=== PATIENT | female | born 1955 | race African-American/Black ===

== ENCOUNTER 2019-01-12 12:24 | Observation (INO) | payer MEDICARE ==
[~2019-01-12] VITALS: Ht 152.4 cm; Wt 110.2 kg
--- OUTSIDE RECORDS SUMMARY | 2019-01-12 12:27 | XMS REPORT | Clinical Summary ---
Author Author GORGE [facility] Organization [facility] Address Unknown Phone Unavailable Care Team Providers Care Shuttlecock Assembler Name Role Phone Vivi Matthew MD PCP Unavailable Allergies Comments Active Allergy Reactions Severity Noted Date cough Emilio Inhibitors Other (See 09/13/2015 Comments) Tolterodine Hives 09/13/2015 Nsaids (Non-Steroidal Anaphylaxis High 09/13/2015 Anti-Inflammatory Drug) Penicillins Rash Low 09/13/2015 Oxycodone-Acetaminophen Hives 09/13/2015 Medications End Date Status Medication Sig Dispensed Refills Start Date Active glimepiride (AMARYL) 2 MG Take 4 mg by 0 tabletIndications: type 2 mouth every diabetes mellitus morning before breakfast. Active labetalol (NORMODYNE) 200 Take 200 mg 0 MG tablet by mouth 2 (two) times daily. Active omeprazole (PRILOSEC) 20 Take 20 mg by 0 MG capsule mouth 2 (two) times daily. Active pravastatin (PRAVACHOL) Take 80 mg by 0 80 MG tablet mouth daily. Active losartan-hydrochlorothiaz Take 1 tablet 0 romero (HYZAAR) 100-25 mg by mouth per tablet daily. Active topiramate (TOPAMAX) 100 Take 100 mg 0 MG tablet by mouth 2 (two) times daily. Active cloNIDine HCl (CATAPRES) Take 0.1 mg 0 0.1 MG tablet by mouth 2 (two) times daily. Active hydroxychloroquine Take 200 mg 0 (PLAQUENIL) 200 mg tablet by mouth daily. Active acetaminophen-codeine Take 1 tablet 0 (TYLENOL #4) 300-60 mg by mouth 3 per tablet (three) times daily as needed for Pain. Active cetirizine (ZYRTEC) 10 MG Take 10 mg by 0 tablet mouth 2 (two) times daily as needed for Allergies. 06/15/2018 Discontinued aspirin 81 MG chewable Take 81 mg by 0 tablet mouth daily. 06/15/2018 Discontinued HYDROmorphone (DILAUDID) Take 2 mg by 0 2 MG tabletIndications: mouth every 8 Pain (eight) hours as needed for Pain . 06/15/2018 Discontinued traZODone (DESYREL) 50 MG Take 50 mg by 0 tablet mouth nightly. 11/11/2018 Discontinued dicyclomine (BENTYL) 10 Take 10 mg by 0 MG capsule mouth 3 (three) times daily as needed (for abd cramps). 11/11/2018 Discontinued hydrOXYzine (ATARAX) 25 Take 25 mg by 0 MG tablet mouth 3 (three) times daily as needed for Itching. 06/15/2018 Discontinued psyllium (METAMUCIL) Pack Take 1 packet 60 packet 0 packet by mouth 7 nightly. 06/15/2018 Discontinued metroNIDAZOLE (FLAGYL) Take 1 tablet 14 tablet 0 500 MG tablet (500 mg 8 total) by mouth 2 (two) times daily for 7 days. 06/15/2018 Discontinued ciprofloxacin HCl (CIPRO) Take 1 tablet 28 tablet 0 500 MG tablet (500 mg 8 total) by mouth 2 (two) times daily for 7 days. 06/15/2018 Discontinued traMADol (ULTRAM) 50 mg Take 1 tablet 20 tablet 0 tablet (50 mg total) 8 by mouth every 6 (six) hours as needed for up to 10 days. Max Daily Amount: 200 mg 06/15/2018 Discontinued docusate sodium (COLACE) Take 1 30 capsule 0 100 MG capsule capsule (100 8 mg total) by mouth 3 (three) times daily as needed for Constipation for up to 10 days. 11/11/2018 Discontinued polyethylene glycol Take 17 g by 0 (GLYCOLAX) 17 gram packet mouth daily. 11/12/2018 Discontinued ondansetron (ZOFRAN) 4 MG Take 1 tablet 16 tablet 0 tablet (4 mg total) 9 by mouth every 6 (six) hours for 7 days. 11/12/2018 Discontinued lactulose (CEPHULAC) 20 Take 1 packet 30 each 0 gram packet (20 g total) 9 by mouth 3 (three) times daily for 10 days. 11/22/2018 lactulose (CEPHULAC) 20 Take 1 packet 30 each 0 gram packet (20 g total) 9 by mouth 2 (two) times daily as needed (constipation ) for up to 10 days. 11/19/2018 ondansetron (ZOFRAN) 4 MG Take 1 tablet 16 tablet 0 tablet (4 mg total) 9 by mouth every 6 (six) hours for 7 days. Active Problems Problem Noted Date Constipation 06/14/2018 Left upper quadrant pain 06/13/2018 Colostomy complication, unspecified 06/13/2018 Recurrent ventral hernia 06/13/2018 Morbid obesity with BMI of 45.0-49.9, adult 06/13/2018 Abdominal pain, unspecified location 04/30/2017 Acute abdominal pain in left lower quadrant 09/13/2015 DM type 2 (diabetes mellitus, type 2) 09/13/2015 Essential hypertension 09/13/2015 SLE (systemic lupus erythematosus) 09/13/2015 History of IBS 09/13/2015 Chronic back pain greater than 3 months duration 09/13/2015 Mild intermittent asthma without complication 09/13/2015 GERD (gastroesophageal reflux disease) 09/13/[address] 09/13/2015 H/O ventral hernia 09/13/2015 Encounters Care Team Description Date Type Specialty Ricki Wilkinson MD Dang, Jose C Daugherty MD Constipation, unspecified constipation type (Primary Dx); Left upper quadrant pain; Recurrent ventral hernia; Morbid obesity with BMI of 45.0-49.9, adult (HCC) 11/11/2018 Emergency General Internal Medicine - 11/12/2018 11/11/2018 Travel Maddi Ziegler DO Schempp, Rosemary, MD Hite, Wayne K., DO Left upper quadrant pain (Primary Dx); Colostomy complication, unspecified ([facility]); Type 2 diabetes mellitus with complication, unspecified whether senior care insulin use ([facility]); Essential hypertension; Systemic lupus erythematosus, unspecified SLE type, unspecified organ involvement status ([facility]); Recurrent ventral hernia 06/13/2018 Emergency General Internal Medicine - 06/15/2018 OfPortillo scott MD Abdominal pain, acute, left lower quadrant (Primary Dx); Acute colitis 06/09/2018 Emergency Emergency Medicine - 06/10/2018 after 01/11/2018 Social History Date Tobacco Use Types Packs/Day Years Used Never Smoker Smokeless Tobacco: Never Used Alcohol Use Drinks/Week oz/Week Comments No Sex Assigned at Date Recorded Not on file Industry Job Start Date Occupation Not on file Not on file Not on file Travel End Travel History Travel Start No recent travel history available. Last Filed Vital Signs Time Taken Vital Sign Reading 11/12/2018 8:50 AM TELETYPE TELEGRAPHER Blood Pressure 122/56 11/12/2018 8:50 AM TELETYPE TELEGRAPHER Pulse 80 11/12/2018 8:50 AM TELETYPE TELEGRAPHER Temperature 36.5 C (97.7 F) 11/12/2018 8:50 AM TELETYPE TELEGRAPHER Respiratory Rate 18 11/12/2018 8:50 AM TELETYPE TELEGRAPHER Oxygen Saturation 94% - Inhaled Oxygen - Concentration 11/11/2018 6:12 AM TELETYPE TELEGRAPHER Weight 110.7 kg (244 lb) 11/11/2018 6:12 AM TELETYPE TELEGRAPHER Height 152.4 cm (5') 11/11/2018 6:12 AM TELETYPE TELEGRAPHER Body Mass Index 47.65 Plan of Treatment Not on file Procedures Comments Procedure Name Priority Date/Time Associated Diagnosis POCT-GLUCOSE METER Routine 11/12/2018 8:57 AM TELETYPE TELEGRAPHER POCT-GLUCOSE METER Routine 11/11/2018 9:47 PM TELETYPE TELEGRAPHER POCT-GLUCOSE METER Routine 11/11/2018 6:[address] ABDOMEN/PELVIS WITH IV STAT 11/11/2018 CONTRAST 9:25 AM TELETYPE TELEGRAPHER CBC W/PLT COUNT & AUTO STAT 11/11/2018 DIFFERENTIAL 7:52 AM TELETYPE TELEGRAPHER CBC W/PLT COUNT & AUTO STAT 11/11/2018 DIFFERENTIAL 7:52 AM TELETYPE TELEGRAPHER BASIC METABOLIC PANEL (7) STAT 11/11/2018 7:52 AM TELETYPE TELEGRAPHER URINALYSIS W/ MICROSCOPIC STAT 11/11/2018 7:23 AM TELETYPE TELEGRAPHER POCT-GLUCOSE METER Routine 06/15/2018 12:17 PM CDT POCT-GLUCOSE METER Routine 06/15/2018 7:36 AM CDT MAGNESIUM Routine 06/15/2018 5:54 AM CDT PHOSPHORUS Routine 06/15/2018 5:54 AM CDT BASIC METABOLIC PANEL (7) Routine 06/15/2018 5:54 AM CDT POCT-GLUCOSE METER Routine 06/14/2018 10:21 PM CDT POCT-GLUCOSE METER Routine 06/14/2018 5:14 PM CDT POCT-GLUCOSE METER Routine 06/14/2018 11:26 AM CDT POCT-GLUCOSE METER Routine 06/14/2018 8:34 AM CDT CBC W/PLT COUNT & AUTO Routine 06/14/2018 DIFFERENTIAL 5:20 AM CDT LACTIC ACID, VENOUS Routine 06/14/2018 5:20 AM CDT CBC W/PLT COUNT & AUTO Routine 06/14/2018 DIFFERENTIAL 5:20 AM CDT MAGNESIUM Routine 06/14/2018 5:20 AM CDT PHOSPHORUS Routine 06/14/2018 5:20 AM CDT BASIC METABOLIC PANEL (7) Routine 06/14/2018 5:20 AM CDT POCT-GLUCOSE METER Routine 06/13/2018 10:[address] ABDOMEN/PELVIS WITH IV STAT 06/13/2018 CONTRAST 5:13 PM CDT POCT-LACTIC ACID, VENOUS Routine 06/13/2018 3:28 PM CDT CBC W/PLT COUNT & AUTO STAT 06/13/2018 DIFFERENTIAL 3:09 PM CDT PT/APTT STAT 06/13/2018 3:09 PM CDT CBC W/PLT COUNT & AUTO STAT 06/13/2018 DIFFERENTIAL 3:09 PM CDT LIPASE STAT 06/13/2018 3:09 PM CDT COMPREHENSIVE METABOLIC STAT 06/13/2018 PANEL 3:[address] ABDOMEN/PELVIS WITH IV STAT 06/09/2018 CONTRAST 9:47 PM CDT URINALYSIS W/ MICROSCOPIC STAT 06/09/2018 6:47 PM CDT CBC W/PLT COUNT & AUTO STAT 06/09/2018 DIFFERENTIAL 6:03 PM CDT CBC W/PLT COUNT & AUTO STAT 06/09/2018 DIFFERENTIAL 6:03 PM CDT BASIC METABOLIC PANEL (7) STAT 06/09/2018 6:03 PM CDT after 01/11/2018 Results * POC-Glucose meter (11/12/2018 8:57 AM TELETYPE TELEGRAPHER) Only the most recent of 10 results within the time period is included. POC-Glucose Meter 134 (H)Comment: TESTED AT 70 - 110 mg/dL [facility] [address] [facility] [id number] Specimen Blood Performing Organization Address City/State/Zipcode Phone Number [place] [phone] [place] [address] [facility] * CT abdomen/pelvis with IV contrast (11/11/2018 9:25 AM TELETYPE TELEGRAPHER) Only the most recent of 3 results within the time period is included. Specimen Narrative Performed At FINAL REPORT [place] DOSE REDUCTION: The examination was performed according to departmental dose-optimization program which includes automated exposure control, adjustment of the mA and/or kV according to patient size and/or use of iterative reconstruction technique. TECHNIQUE: CT of the abdomen and pelvis with intravenous contrast. COMPARISON: CT of the abdomen and pelvis, 06/13/2018, 04/30/2017 Discussion: Lung bases are clear. Partially depicted heart is enlarged. Liver is enlarged measuring 17 cm. There is decreased liver density consistent with fatty infiltration. No suspicious liver lesion. Spleen measures 12 cm. Pancreas and left adrenal gland appear unremarkable. There is some right adrenal gland nodularity/hyperplasia which is stable. The gallbladder and biliary tree are unremarkable. A 1.2 cm hyperdense exophytic right renal lesion is again seen. Compared to 06/13/2018 this is stable, compared to 04/30/2017 this is slightly enlarged. As suggested previously, a small renal cell neoplasm could not be excluded and if not already performed, renal protocol CT or MRI is recommended. Additional renal hypodensities are grossly stable, difficult to characterize further but likely represent cysts. No hydronephrosis bilaterally. No definite findings of pyelonephritis. No obstructing ureteral stones. There is a small hiatal hernia. There is a large complex appearing midline ventral pelvic wall hernia containing multiple loops of nonobstructed small bowel and colon. This is stable. Postsurgical changes related to left colonic resection and left lower quadrant colostomy seen. A large left-sided parastomal hernia containing multiple nonobstructed loops of small bowel again noted. There are additional smaller abdominal wall hernias centrally most of which contain fat which are stable. There is mild wall thickening involving portions of the distal transverse colon, but this has decreased. No ascites. A few mildly prominent upper abdominal/periportal lymph nodes measuring up to 1.6 cm stable. Aorta and IVC are normal in caliber. Uterus is surgically absent. No suspicious adnexal masses. Urinary bladder is unremarkable. No acute skeletal abnormality. Postsurgical changes in the lumbar spine. IMPRESSION: 1. No acute CT abnormality in the abdomen and pelvis. 2. Some of the previous transverse colonic wall thickening has decreased. Otherwise there is no significant change from CT of 06/13/2018. See above for multiple stable findings. Signed: Gemini Christina MD Report Verified Date/Time:11/11/2018 09:52:32 Reading Location: [facility] Radiology Reading Room Procedure Note Interface, External Ris In - 11/11/2018 9:54 AM TELETYPE TELEGRAPHER FINAL REPORT DOSE REDUCTION: The examination was performed according to departmental dose-optimization program which includes automated exposure control, adjustment of the mA and/or kV according to patient size and/or use of iterative reconstruction technique. TECHNIQUE: CT of the abdomen and pelvis with intravenous contrast. COMPARISON: CT of the abdomen and pelvis, 06/13/2018, 04/30/2017 Discussion: Lung bases are clear. Partially depicted heart is enlarged. Liver is enlarged measuring 17 cm. There is decreased liver density consistent with fatty infiltration. No suspicious liver lesion. Spleen measures 12 cm. Pancreas and left adrenal gland appear unremarkable. There is some right adrenal gland nodularity/hyperplasia which is stable. The gallbladder and biliary tree are unremarkable. A 1.2 cm hyperdense exophytic right renal lesion is again seen. Compared to 06/13/2018 this is stable, compared to 04/30/2017 this is slightly enlarged. As suggested previously, a small renal cell neoplasm could not be excluded and if not already performed, renal protocol CT or MRI is recommended. Additional renal hypodensities are grossly stable, difficult to characterize further but likely represent cysts. No hydronephrosis bilaterally. No definite findings of pyelonephritis. No obstructing ureteral stones. There is a small hiatal hernia. There is a large complex appearing midline ventral pelvic wall hernia containing multiple loops of nonobstructed small bowel and colon. This is stable. Postsurgical changes related to left colonic resection and left lower quadrant colostomy seen. A large left-sided parastomal hernia containing multiple nonobstructed loops of small bowel again noted. There are additional smaller abdominal wall hernias centrally most of which contain fat which are stable. There is mild wall thickening involving portions of the distal transverse colon, but this has decreased. No ascites. A few mildly prominent upper abdominal/periportal lymph nodes measuring up to 1.6 cm stable. Aorta and IVC are normal in caliber. Uterus is surgically absent. No suspicious adnexal masses. Urinary bladder is unremarkable. No acute skeletal abnormality. Postsurgical changes in the lumbar spine. IMPRESSION: 1. No acute CT abnormality in the abdomen and pelvis. 2. Some of the previous transverse colonic wall thickening has decreased. Otherwise there is no significant change from CT of 06/13/2018. See above for multiple stable findings. Signed: Gemini Christina MD Report Verified Date/Time: 11/11/2018 09:52:32 Reading Location: [facility] Radiology Reading Room Performing Organization Address City/State/Zipcode Phone Number [facility] * CBC with platelet count + automated diff (11/11/2018 7:52 AM TELETYPE TELEGRAPHER) Only the most recent of 4 results within the time period is included. WBC 12.3 (H) 3.5 - 10.5 K/L [facility] RBC 5.19 3.93 - 5.22 M/L [facility] Hemoglobin 13.2 11.2 - 15.7 GM/DL [facility] Hematocrit 43.9 34.1 - 44.9 % [facility] MCV 84.6 79.4 - 94.8 fL [facility] MCH 25.4 (L) 25.6 - 32.2 pg [facility] MCHC 30.1 (L) 32.2 - 35.5 GM/DL [facility] RDW 13.8 11.7 - 14.4 % [facility] Platelets 262 150 - 450 K/CU MM [facility] MPV 8.9 (L) 9.4 - 12.3 fL [facility] nRBC 0 0 - 0 /100 WBC [facility] % Neutros 68 % [facility] % Lymphs 23 % [facility] % Monos 7 % [facility] % Eos 1 % [facility] % Baso 0 % [facility] # Neutros 8.32 (H) 1.56 - 6.13 K/L [facility] # Lymphs 2.77 1.18 - 3.74 K/L [facility] # Monos 0.89 (H) 0.24 - 0.36 K/L [facility] # Eos 0.16 0.04 - 0.36 K/L [facility] # Baso 0.05 0.01 - 0.08 K/L [facility] Immature 1 0 - 1 % [facility] Granulocytes-Relative [facility] Specimen Blood Performing Organization Address City/[facility]/Zipcode Phone Number [facility] [address] [place] [address] [facility] * Basic Metabolic Panel (11/11/2018 7:52 AM TELETYPE TELEGRAPHER) Only the most recent of 4 results within the time period is included. Sodium 142 136 - 145 meq/L [facility] Potassium 3.8 3.5 - 5.1 meq/L [facility] Chloride 107 98 - 107 meq/L [facility] CO2 21 (L) 22 - 29 meq/L [facility] BUN 15 7 - 21 mg/dL [facility] Creatinine 0.82 0.57 - 1.25 mg/dL [facility] Glucose 95 70 - 105 mg/dL [facility] Calcium 10.2 8.4 - 10.2 mg/dL [facility] EGFR 85Comment: ESTIMATED GFR IS mL/min/1.[address] [facility] NOT ACCURATE CREATININE [facility] CLEARANCE IN PREDICTING GLOMERULAR FILTRATION RATE. ESTIMATED GFR IS NOT APPLICABLE FOR DIALYSIS PATIENTS. Specimen Blood Performing Organization Address City/State/Zipcode Phone Number [facility] [address] [place] [address] [facility] * Urinalysis w/Microscopic (11/11/2018 7:23 AM TELETYPE TELEGRAPHER) Only the most recent of 2 results within the time period is included. Color, UA Yellow [facility] Clarity, UA Clear [facility] Specific [place], UA 1.011 1.001 - 1.035 [facility] pH, UA 5.5 5.0 - 8.0 [facility] Protein, UA Negative Negative [facility] Glucose, UA Negative Negative [facility] Ketones, UA Negative Negative [facility] Bilirubin, UA Negative Negative [facility] Blood, UA Negative Negative [facility] Nitrite, UA Negative Negative [facility] Leukocytes, UA Negative Negative [facility] Urobilinogen, UA 0.2 0.2 - 1.0 mg/dL [facility] RBC, UA <1 /HPF [facility] WBC, UA 1 /HPF [facility] Bacteria, UA Rare [facility] Mucus Rare [facility] Squam Epithel, UA 2 /HPF [facility] Specimen Source Urine, Clean Catch [facility] Specimen Urine Performing Organization Address City/[facility] [place] [address] [facility] * Phosphorus (06/15/2018 5:54 AM CDT) Only the most recent of 2 results within the time period is included. Phosphorus 3.2 2.3 - 4.7 mg/dL [facility] Specimen Blood Performing Organization Address City/[facility]/Zipcode Phone Number [address] [address] [facility] * Magnesium (06/15/2018 5:54 AM CDT) Only the most recent of 2 results within the time period is included. Magnesium 1.8 1.6 - 2.6 mg/dL [facility] Specimen Blood Performing Organization Address City/[facility] Phone Number [address] [address] [facility] * Lactic acid, venous, whole blood (06/14/2018 5:20 AM CDT) Lactate, Venous 1.2Comment: Specimen slightly 0.5 - 2.2 mmol/L [facility] hemolyzed [facility] Specimen Blood Narrative Performed At Effective 01/19/2016: Units/Reference Range Change [facility] New: 0.5-2.2 mmol/LPrevious: 5-20 mg/dL [facility] Performing Organization Address City/State/[facility] Phone Number [address] [address] [facility] * POC-Lactic Acid, Venous (06/13/2018 3:28 PM CDT) POC-Lactic Acid, Venous 1.8 (H)Comment: TESTED AT 0.9 - 1.7 mmol/L [facility] [address] [place] [id number] Specimen Blood Performing Organization Address [facility] Phone Number [address] [address] [facility] * PT/aPTT (06/13/2018 3:09 PM CDT) Protime 15.7 (H) 11.7 - 14.7 seconds [facility] INR 1.3 <=5.9 [facility] PTT 34.9 22.5 - 36.0 seconds [facility] Specimen Blood Narrative Performed At RECOMMENDED COUMADIN/WARFARIN INR THERAPY RANGES [facility] STANDARD DOSE: 2.0 - 3.0 Includes: PROPHYLAXIS for venous thrombosis, [facility] systemic embolization; TREATMENT for venous thrombosis and/or pulmonary embolus. HIGH RISK: Target INR is 2.5-3.5 for patients with mechanical heart valves. Performing Organization Address City/[facility] Phone Number [address] [address] [facility] * Lipase (06/13/2018 3:09 PM CDT) Lipase 23 8 - 78 U/L [facility] Specimen Blood Performing Organization Address City/State/Zipcode Phone Number [facility] [address] [place] [address] MEDICAL [facility]ENTER * Comprehensive metabolic panel (06/13/2018 3:09 PM CDT) Protein, Total 7.9Comment: Specimen slightly 6.0 - 8.3 gm/dL [facility] Albumin 4.3Comment: Specimen slightly 3.5 - 5.0 g/dL [facility] Alkaline Phosphatase 118 40 - 150 U/L [facility] Total Bilirubin 0.5Comment: Specimen slightly 0.2 - 1.2 mg/dL [facility] Sodium 138 136 - 145 meq/L [facility] Potassium 3.9Comment: Specimen slightly 3.5 - 5.1 meq/L [facility] Chloride 107 98 - 107 meq/L [facility] CO2 19 (L) 22 - 29 meq/L [facility] BUN 20 7 - 21 mg/dL [facility] Creatinine 0.93Comment: Specimen slightly 0.57 - 1.25 mg/dL [facility] Glucose 144 (H) 70 - 105 mg/dL [facility] Calcium 10.0 8.4 - 10.2 mg/dL [facility] AST 20Comment: Specimen slightly 5 - 34 U/L [facility] ALT 13Comment: Specimen slightly 6 - 55 U/L [facility] EGFR 74Comment: ESTIMATED GFR IS mL/min/1.[address] [facility] NOT ACCURATE CREATININE [facility] CLEARANCE IN PREDICTING GLOMERULAR FILTRATION RATE. ESTIMATED GFR IS NOT APPLICABLE FOR DIALYSIS PATIENTS. Specimen Blood Performing Organization Address City/State/Zipcode Phone Number [facility] [address] [place], [place] [id number] MEDICAL [facility]ENTER after 01/11/2018 Insurance Payer Benefit Subscriber ID Type Phone Address Plan / Group [facility] MEDIC[facility] ADV Advance Directives For more information, please contact: [facility] [address] [place] [address] Date Inactivated Comments Code Status Date Activated 11/12/2018 12:47 PM Full Code 11/11/2018 2:37 PM This code status was determined by: Patient 06/15/2018 6:12 PM Full Code 06/13/2018 9:28 PM This code status was determined by: Patient 05/01/2017 6:22 PM Full Code 05/01/2017 1:52 AM This code status was determined by: Patient 09/15/2015 11:47 AM Full Code 09/13/2015 3:38 AM This code status was determined by: Patient
--- OUTSIDE RECORDS SUMMARY | 2019-01-12 12:28 | XMS REPORT ---
[facility] Address Unknown Phone Unavailable Care Team Providers Care Marketing Sales Supervisor Name Role Phone Radha ULLOA Unavailable Unavailable JYOTILISBETH Unavailable Unavailable OFORDEME, DALI PLASENCIA Unavailable Unavailable TRACE, TIFFANY MCMANUS Unavailable Unavailable Problems This patient has no known problems. Allergies, Adverse Reactions, Alerts This patient has no known allergies or adverse reactions. Medications This patient has no known medications. Results Test Description Test Time Test Comments Text Results Atomic Results Result Comments POCT-GLUCOSE METER 2018-11-12 09:13:00 POC-GLUCOSE METER (BEAKER) (test llyj=5713) 134 mg/dL 70-110 TESTED AT [address] [address] POCT-GLUCOSE [id number] 22:00:00* Test Item Value Reference Range Comments POC-GLUCOSE METER (BEAKER) (test hvxe=8137) 144 mg/dL 70-110 TESTED AT [address] [address] POCT-GLUCOSE [id number] 18:25:00* Test Item Value Reference Range Comments POC-GLUCOSE METER (BEAKER) (test kaiz=1176) 143 mg/dL 70-110 TESTED AT [address] [address] [address], [id number] 09:52:00Reason for exam:->ABDOMINAL PAINWhat is the patient's sedation requirement?->No SedationFINAL REPORT DOSE REDUCTION: The examination was performed according to departmental dose- optimization program which includes automated exposure control, adjustment of the mA and/or kV according to patient size and/or use of iterative reconstruction technique. TECHNIQUE: CT of the abdomen and pelvis with intravenous contrast. COMPARISON: CT of the abdomen and pelvis, 06/13/2018, 04/30/2017 Discussion: Lung bases are clear. Partially depicted heart is enla rged. Liver is enlarged measuring 17 cm. There is decreased liver density consis tent with fatty infiltration. No suspicious liver lesion. Spleen measures 12 cm. Pancreas and left adrenal gland appear unremarkable. There is some right adrenal gland nodularity/hyperplasia which is stable. The gallbladder and biliary tree are unremarkable. A 1.2 cm hyperdense exophytic right renal lesion is again see n. Compared to 06/13/2018 this is stable, compared to 04/30/2017 this is slightly enlarged. As suggested previously, a small renal cell neoplasm could not be excl uded and if not already performed, renal protocol CT or MRI is recommended. Uriel tional renal hypodensities are grossly stable, difficult to characterize further but likely represent cysts. No hydronephrosis bilaterally. No definite findings of pyelonephritis. No obstructing ureteral stones. There is a small hiatal dillan ia. There is a large complex appearing midline ventral pelvic wall hernia contai ricardo multiple loops of nonobstructed small bowel and colon. This is stable. Post surgical changes related to left colonic resection and left lower quadrant colos miguelito seen. A large left-sided parastomal hernia containing multiple nonobstructe d loops of small bowel again noted. There are additional smaller abdominal wall hernias centrally most of which contain fat which are stable. There is mild wall thickening involving portions of the distal transverse colon, but this has decr eased. No ascites. A few mildly prominent upper abdominal/periportal lymph nodes measuring up to 1.6 cm stable. Aorta and IVC are normal in caliber. Uterus is s urgically absent. No suspicious adnexal masses. Urinary bladder is unremarkable. No acute skeletal abnormality. Postsurgical changes in the lumbar spine. IMPRES PRAMOD: 1. No acute CT abnormality in the abdomen and pelvis. 2. Some of the previ ous transverse colonic wall thickening has decreased. Otherwise there is no sign ificant change from CT of 06/13/2018. See above for multiple stable findings. Sig skinny: Félix Christina MDReport Verified Date/Time: 11/11/2018 09:52:32 Reading Locat ion: [facility] Radiology Reading Room C METABOLIC [id number] 08:15:00* Test Item Value Reference Range Comments SODIUM (BEAKER) (test fluf=018) 142 meq/L 136-145 POTASSIUM (BEAKER) (test yjnw=237) 3.8 meq/L 3.5-5.1 CHLORIDE (BEAKER) (test pphf=488) 107 meq/L 98-107 CO2 (BEAKER) (test qqvh=087) 21 meq/L 22-29 BLOOD UREA NITROGEN (BEAKER) (test slhu=597) 15 mg/dL 7-21 CREATININE (BEAKER) (test vlph=583) 0.82 mg/dL 0.57-1.25 GLUCOSE RANDOM (BEAKER) (test eqdg=539) 95 mg/dL 70-105 CALCIUM (BEAKER) (test mssc=924) 10.2 mg/dL 8.4-10.2 EGFR (BEAKER) (test zkfx=4587) 85 mL/min/1.73 sq m ESTIMATED GFR IS NOT ACCURATE CREATININE CLEARANCE IN PREDICTING GLOMERULAR FILTRATION RATE. ESTIMATED GFR IS NOT APPLICABLE FOR DIALYSIS PATIENTS. CBC W/PLT COUNT & AUTO [id number] 08:09:00* Test Item Value Reference Range Comments WHITE BLOOD CELL COUNT (BEAKER) (test ahaa=807) 12.3 K/ L 3.5-10.5 RED BLOOD CELL COUNT (BEAKER) (test ppgq=921) 5.19 M/ L 3.93-5.22 HEMOGLOBIN (BEAKER) (test fbli=040) 13.2 GM/DL 11.2-15.7 HEMATOCRIT (BEAKER) (test ifvj=618) 43.9 % 34.1-44.9 MEAN CORPUSCULAR VOLUME (BEAKER) (test otmy=303) 84.6 fL 79.4-94.8 MEAN CORPUSCULAR HEMOGLOBIN (BEAKER) (test qgyx=241) 25.4 pg 25.6-32.2 MEAN CORPUSCULAR HEMOGLOBIN CONC (BEAKER) (test rfyg=721) 30.1 GM/DL 32.2-35.5 RED CELL DISTRIBUTION WIDTH (BEAKER) (test mnua=666) 13.8 % 11.7-14.4 PLATELET COUNT (BEAKER) (test rnxd=223) 262 K/CU MM 150-450 MEAN PLATELET VOLUME (BEAKER) (test jezy=312) 8.9 fL 9.4-12.3 NUCLEATED RED BLOOD CELLS (BEAKER) (test wonc=023) 0 /100 WBC 0-0 NEUTROPHILS RELATIVE PERCENT (BEAKER) (test vtdw=220) 68 % LYMPHOCYTES RELATIVE PERCENT (BEAKER) (test wzdj=003) 23 % MONOCYTES RELATIVE PERCENT (BEAKER) (test nwml=549) 7 % EOSINOPHILS RELATIVE PERCENT (BEAKER) (test monm=668) 1 % BASOPHILS RELATIVE PERCENT (BEAKER) (test hzxq=155) 0 % NEUTROPHILS ABSOLUTE COUNT (BEAKER) (test llcj=829) 8.32 K/ L 1.56-6.13 LYMPHOCYTES ABSOLUTE COUNT (BEAKER) (test uact=441) 2.77 K/ L 1.18-3.74 MONOCYTES ABSOLUTE COUNT (BEAKER) (test oxej=277) 0.89 K/ L 0.24-0.36 EOSINOPHILS ABSOLUTE COUNT (BEAKER) (test nuxf=264) 0.16 K/ L 0.04-0.36 BASOPHILS ABSOLUTE COUNT (BEAKER) (test rihk=331) 0.05 K/ L 0.01-0.08 IMMATURE GRANULOCYTES-RELATIVE PERCENT (BEAKER) (test dvdp=7977) 1 % 0-1 URINALYSIS W/ [id number] 08:00:00* Test Item Value Reference Range Comments COLOR (BEAKER) (test lsbv=799) Yellow CLARITY (BEAKER) (test mefs=415) Clear SPECIFIC GRAVITY UA (BEAKER) (test kcum=998) 1.011 1.001-1.035 PH UA (BEAKER) (test rsop=489) 5.5 5.0-8.0 PROTEIN UA (BEAKER) (test mphp=324) Negative Negative GLUCOSE UA (BEAKER) (test nmem=206) Negative Negative KETONES UA (BEAKER) (test rbil=753) Negative Negative BILIRUBIN UA (BEAKER) (test fjml=370) Negative Negative BLOOD UA (BEAKER) (test smps=254) Negative Negative NITRITE UA (BEAKER) (test wrdq=664) Negative Negative LEUKOCYTE ESTERASE UA (BEAKER) (test vytj=343) Negative Negative UROBILINOGEN UA (BEAKER) (test jljv=406) 0.2 mg/dL 0.2-1.0 RBC UA (BEAKER) (test cfeb=150) < /HPF WBC UA (BEAKER) (test psao=227) 1 /HPF BACTERIA (BEAKER) (test gtro=970) Rare MUCUS (BEAKER) (test ohwi=0991) Rare SQUAMOUS EPITHELIAL (BEAKER) (test jxil=917) 2 /HPF SOURCE(BEAKER) (test qaqx=5036) Urine, Clean Catch POCT-GLUCOSE [id number] 12:20:00* Test Item Value Reference Range Comments POC-GLUCOSE METER (BEAKER) (test aqxq=8033) 152 mg/dL 70-110 TESTED AT [facility] [address] [facility] [address] POCT-GLUCOSE [id number] 07:38:00* Test Item Value Reference Range Comments POC-GLUCOSE METER (BEAKER) (test pako=3554) 127 mg/dL 70-110 TESTED AT [address] [address] [id number] 06:41:00* Test Item Value Reference Range Comments PHOSPHORUS (BEAKER) (test bzjl=378) 3.2 mg/dL 2.3-4.7 [id number] 06:41:00* Test Item Value Reference Range Comments MAGNESIUM (BEAKER) (test sjfv=325) 1.8 mg/dL 1.6-2.6 BASIC METABOLIC [id number] 06:41:00* Test Item Value Reference Range Comments SODIUM (BEAKER) (test ecda=320) 142 meq/L 136-145 POTASSIUM (BEAKER) (test mxmu=543) 3.2 meq/L 3.5-5.1 CHLORIDE (BEAKER) (test wgzd=733) 106 meq/L 98-107 CO2 (BEAKER) (test emej=040) 26 meq/L 22-29 BLOOD UREA NITROGEN (BEAKER) (test dgqi=277) 19 mg/dL 7-21 CREATININE (BEAKER) (test bnub=991) 0.98 mg/dL 0.57-1.25 GLUCOSE RANDOM (BEAKER) (test raqu=986) 119 mg/dL 70-105 CALCIUM (BEAKER) (test tweo=261) 9.7 mg/dL 8.4-10.2 EGFR (BEAKER) (test pfqi=0917) 69 mL/min/1.73 sq m ESTIMATED GFR IS NOT ACCURATE CREATININE CLEARANCE IN PREDICTING GLOMERULAR FILTRATION RATE. ESTIMATED GFR IS NOT APPLICABLE FOR DIALYSIS PATIENTS. POCT-GLUCOSE [id number] 22:33:00* Test Item Value Reference Range Comments POC-GLUCOSE METER (BEAKER) (test lxhu=4261) 146 mg/dL 70-110 TESTED AT [facility] [address] [facility] [address] POCT-GLUCOSE [id number] 17:17:00* Test Item Value Reference Range Comments POC-GLUCOSE METER (BEAKER) (test ucyo=5998) 155 mg/dL 70-110 TESTED AT [address] [address] POCT-GLUCOSE [id number] 11:29:00* Test Item Value Reference Range Comments POC-GLUCOSE METER (BEAKER) (test evfu=9323) 160 mg/dL 70-110 TESTED AT [address] [address] POCT-GLUCOSE [id number] 08:39:00* Test Item Value Reference Range Comments POC-GLUCOSE METER (BEAKER) (test qkdo=1555) 204 mg/dL 70-110 TESTED AT [address] [address] [id number] 05:48:00* Test Item Value Reference Range Comments PHOSPHORUS (BEAKER) (test sfyg=399) 3.3 mg/dL 2.3-4.7 [id number] 05:48:00* Test Item Value Reference Range Comments MAGNESIUM (BEAKER) (test oetj=590) 1.7 mg/dL 1.6-2.6 BASIC METABOLIC [id number] 05:48:00* Test Item Value Reference Range Comments SODIUM (BEAKER) (test ywpj=401) 141 meq/L 136-145 POTASSIUM (BEAKER) (test lpbs=380) 3.4 meq/L 3.5-5.1 CHLORIDE (BEAKER) (test izoc=231) 107 meq/L 98-107 CO2 (BEAKER) (test tkzf=600) 23 meq/L 22-29 BLOOD UREA NITROGEN (BEAKER) (test ipmz=223) 19 mg/dL 7-21 CREATININE (BEAKER) (test jgec=538) 0.90 mg/dL 0.57-1.25 GLUCOSE RANDOM (BEAKER) (test ttgq=178) 132 mg/dL 70-105 CALCIUM (BEAKER) (test mpei=210) 9.6 mg/dL 8.4-10.2 EGFR (BEAKER) (test zfuj=9357) 77 mL/min/1.73 sq m ESTIMATED GFR IS NOT ACCURATE CREATININE CLEARANCE IN PREDICTING GLOMERULAR FILTRATION RATE. ESTIMATED GFR IS NOT APPLICABLE FOR DIALYSIS PATIENTS. LACTIC ACID, VENOUS, WHOLE [id number] 05:43:00* Test Item Value Reference Range Comments LACTATE BLOOD VENOUS (2) (BEAKER) (test jybk=9779) 1.2 mmol/L 0.5-2.2 Specimen slightly hemolyzed Effective 01/19/2016: Units/Reference Range ChangeNew: 0.5-2.2 mmol/L Previous: 5 -20 mg/dLCBC W/PLT COUNT & AUTO [id number] 05:35:00* Test Item Value Reference Range Comments WHITE BLOOD CELL COUNT (BEAKER) (test sqwh=616) 11.1 K/ L 3.5-10.5 RED BLOOD CELL COUNT (BEAKER) (test vmrd=291) 4.29 M/ L 3.93-5.22 HEMOGLOBIN (BEAKER) (test cjaa=803) 11.1 GM/DL 11.2-15.7 HEMATOCRIT (BEAKER) (test liap=140) 36.5 % 34.1-44.9 MEAN CORPUSCULAR VOLUME (BEAKER) (test fvos=630) 85.1 fL 79.4-94.8 MEAN CORPUSCULAR HEMOGLOBIN (BEAKER) (test kzyw=256) 25.9 pg 25.6-32.2 MEAN CORPUSCULAR HEMOGLOBIN CONC (BEAKER) (test qoob=097) 30.4 GM/DL 32.2-35.5 RED CELL DISTRIBUTION WIDTH (BEAKER) (test npbj=271) 13.5 % 11.7-14.4 PLATELET COUNT (BEAKER) (test fvno=729) 255 K/CU MM 150-450 MEAN PLATELET VOLUME (BEAKER) (test hakz=281) 9.4 fL 9.4-12.3 NUCLEATED RED BLOOD CELLS (BEAKER) (test aeou=118) 0 /100 WBC 0-0 NEUTROPHILS RELATIVE PERCENT (BEAKER) (test qcjp=461) 68 % LYMPHOCYTES RELATIVE PERCENT (BEAKER) (test sutc=062) 21 % MONOCYTES RELATIVE PERCENT (BEAKER) (test gnop=981) 7 % EOSINOPHILS RELATIVE PERCENT (BEAKER) (test qxbn=248) 2 % BASOPHILS RELATIVE PERCENT (BEAKER) (test asrn=163) 0 % NEUTROPHILS ABSOLUTE COUNT (BEAKER) (test rhao=590) 7.56 K/ L 1.56-6.13 LYMPHOCYTES ABSOLUTE COUNT (BEAKER) (test prmn=996) 2.37 K/ L 1.18-3.74 MONOCYTES ABSOLUTE COUNT (BEAKER) (test nyhy=509) 0.80 K/ L 0.24-0.36 EOSINOPHILS ABSOLUTE COUNT (BEAKER) (test mxnc=767) 0.25 K/ L 0.04-0.36 BASOPHILS ABSOLUTE COUNT (BEAKER) (test ddez=968) 0.04 K/ L 0.01-0.08 IMMATURE GRANULOCYTES-RELATIVE PERCENT (BEAKER) (test selm=6249) 1 % 0-1 POCT-GLUCOSE [id number] 23:05:00* Test Item Value Reference Range Comments POC-GLUCOSE METER (BEAKER) (test cila=2119) 136 mg/dL 70-110 TESTED AT [facility] [address] [facility] [address] CT, [id number] 17:24:00Reason for exam:->ABDOMINAL PAINReason for exam:-> recent colitisWhat is the patient's sedation requirement?->No SedationFINAL REPORT HISTORY : Abdominal pain, unspecifiedABDOMINAL PAINrecent colitis Technique: Multiple axial images of the abdomen and pelvis were performed with the administration of IV contrast from the lung bases to the pubic symphysis. Delayed images were also obtained. This exam was performed according to our departmental dose optimization program which includes automated exposure control, adjustment of the mA and/or kV according to patient size an d/or use of iterative reconstructive technique. COMPARISON : 06/09/2018 COMMENT : There are bibasilar areas of some linear subsegmental atelectasis versus scarri ng. The patient does have cardiomegaly. There is atherosclerotic vascular diseas e. The visualized spleen, adrenal glands, gallbladder, pancreas, stomach and duo denum are within normal limits. There are some bilateral renal too small to yonis acterize hypodensities but which may represent cysts. Arising from the lower zaheer e of the right kidney, there is a relatively stable 1.2 cm hyperdense/enhancing lesion. Further evaluation with a CT/MRI, renal mass protocol, is advised. While this may represent a hemorrhagic cyst, an enhancing renal mass/neoplasm cannot be excluded. There is atherosclerotic vascular disease. There is a lobulated mandi earance of the liver that could be due to hepatic cirrhosis. The findings should be correlated with liver serology. There is no retroperitoneal or pelvic lympha denopathy. As seen on the prior exam, there are some nonspecifically prominent p eriportal lymph nodes with the largest measuring up to 1.6 x 0.9 cm. While these may be reactive, these should be closely followed by CT to exclude other potent ial etiologies. Multilevel degenerative disc changes of the visualized thoracolu mbar spine are seen. Some fixation hardware seen in the lower lumbar spine. Ther e is a series of several small midline fat-containing ventral hernias. Some post surgical changes are seen in the anterior abdominal wall. There is a large part ially visualized lower pelvic hernia containing both large and small bowel. Ther e is also a left-sided parastomal hernia containing a portion of the colon. Ther e is some mild wall thickening identified of the distal transverse colon with so me mild surrounding edema. The findings are not appreciably changed and could be secondary to a nonspecific colitis. There is no free fluid or free air in the a bdomen or pelvis. The patient is status post partial resection of the left colo n with a left lower quadrant colostomy. There is a large amount of stool in the colon. The patient is status post hysterectomy. No adnexal masses/lesions are ap preciated. Impression: 1. Postsurgical changes consistent with partial left colo kaitlyn resection with a left lower quadrant colostomy. There are no findings of bow el obstruction. There is a large amount of colonic stool. 2. Several midline abd ominal/pelvic ventral hernias. The largest contains large and small bowel. There are no findings of bowel obstruction. 3. Stable hyperdense lesion in the right kidney that could represent a hemorrhagic cyst or enhancing mass. Correlation wi th a CT/MRI, renal mass protocol, is advised. 4. Mild wall thickening and surrou nding edema at the level of distal transverse colon. Findings are nonspecific bu t could be due to a nonspecific colitis. Signed: Julissa Still MDReport Verified Date/Time: 06/13/2018 17:24:25 Reading Location: [facility] C013Y CT Body Reading R oom [id number] 15:40:00* Test Item Value Reference Range Comments LIPASE (BEAKER) (test avmg=194) 23 U/L 8-78 COMPREHENSIVE METABOLIC [id number] 15:40:00* Test Item Value Reference Range Comments TOTAL PROTEIN (BEAKER) (test jxnk=942) 7.9 gm/dL 6.0-8.3 Specimen slightly hemolyzed ALBUMIN (BEAKER) (test ntbd=1612) 4.3 g/dL 3.5-5.0 Specimen slightly hemolyzed ALKALINE PHOSPHATASE (BEAKER) (test fgih=004) 118 U/L 40-150 BILIRUBIN TOTAL (BEAKER) (test cgwm=244) 0.5 mg/dL 0.2-1.2 Specimen slightly hemolyzed SODIUM (BEAKER) (test jqai=334) 138 meq/L 136-145 POTASSIUM (BEAKER) (test nnqf=023) 3.9 meq/L 3.5-5.1 Specimen slightly hemolyzed CHLORIDE (BEAKER) (test exdk=843) 107 meq/L 98-107 CO2 (BEAKER) (test psgl=036) 19 meq/L 22-29 BLOOD UREA NITROGEN (BEAKER) (test sksa=704) 20 mg/dL 7-21 CREATININE (BEAKER) (test fwow=145) 0.93 mg/dL 0.57-1.25 Specimen slightly hemolyzed GLUCOSE RANDOM (BEAKER) (test iqgi=550) 144 mg/dL 70-105 CALCIUM (BEAKER) (test qleo=287) 10.0 mg/dL 8.4-10.2 AST (SGOT) (BEAKER) (test vulq=751) 20 U/L 5-34 Specimen slightly hemolyzed ALT (SGPT) (BEAKER) (test pgjl=999) 13 U/L 6-55 Specimen slightly hemolyzed EGFR (BEAKER) (test zqsd=0308) 74 mL/min/1.73 sq m ESTIMATED GFR IS NOT ACCURATE CREATININE CLEARANCE IN PREDICTING GLOMERULAR FILTRATION RATE. ESTIMATED GFR IS NOT APPLICABLE FOR DIALYSIS PATIENTS. POCT-LACTIC ACID, [id number] 15:35:00* Test Item Value Reference Range Comments POC-LACTIC ACID, VENOUS (BEAKER) (test navo=1901) 1.8 mmol/L 0.9-1.7 TESTED AT [facility] [address] [facility] [place] [address] [id number] 15:35:00* Test Item Value Reference Range Comments PROTIME (BEAKER) (test hlfq=045) 15.7 seconds 11.7-14.7 INR (BEAKER) (test skdv=856) 1.3 <=5.9 PARTIAL THROMBOPLASTIN TIME (BEAKER) (test ytxs=182) 34.9 seconds 22.5-36.0 RECOMMENDED COUMADIN/WARFARIN INR THERAPY RANGESSTANDARD DOSE: 2.0 - 3.0 Inclu elias: PROPHYLAXIS for venous thrombosis, systemic embolization; TREATMENT for jens ous thrombosis and/or pulmonary embolus.HIGH RISK: Target INR is 2.5-3.5 for pat ients with mechanical heart valves.CBC W/PLT COUNT & AUTO [id number] 15:20:00* Test Item Value Reference Range Comments WHITE BLOOD CELL COUNT (BEAKER) (test quwf=412) 11.6 K/ L 3.5-10.5 RED BLOOD CELL COUNT (BEAKER) (test kcin=987) 4.91 M/ L 3.93-5.22 HEMOGLOBIN (BEAKER) (test pgmm=763) 12.8 GM/DL 11.2-15.7 HEMATOCRIT (BEAKER) (test twkc=526) 43.1 % 34.1-44.9 MEAN CORPUSCULAR VOLUME (BEAKER) (test nmom=935) 87.8 fL 79.4-94.8 MEAN CORPUSCULAR HEMOGLOBIN (BEAKER) (test gzdv=403) 26.1 pg 25.6-32.2 MEAN CORPUSCULAR HEMOGLOBIN CONC (BEAKER) (test qdiv=183) 29.7 GM/DL 32.2-35.5 RED CELL DISTRIBUTION WIDTH (BEAKER) (test ozac=116) 14.1 % 11.7-14.4 PLATELET COUNT (BEAKER) (test dgmr=186) 258 K/CU MM 150-450 MEAN PLATELET VOLUME (BEAKER) (test mugs=580) 8.9 fL 9.4-12.3 NUCLEATED RED BLOOD CELLS (BEAKER) (test gess=146) 0 /100 WBC 0-0 NEUTROPHILS RELATIVE PERCENT (BEAKER) (test fmvr=215) 78 % LYMPHOCYTES RELATIVE PERCENT (BEAKER) (test xchu=273) 13 % MONOCYTES RELATIVE PERCENT (BEAKER) (test buxb=537) 7 % EOSINOPHILS RELATIVE PERCENT (BEAKER) (test mkkm=943) 2 % BASOPHILS RELATIVE PERCENT (BEAKER) (test tmop=841) 0 % NEUTROPHILS ABSOLUTE COUNT (BEAKER) (test ohfa=722) 9.07 K/ L 1.56-6.13 LYMPHOCYTES ABSOLUTE COUNT (BEAKER) (test pwme=416) 1.45 K/ L 1.18-3.74 MONOCYTES ABSOLUTE COUNT (BEAKER) (test phll=213) 0.82 K/ L 0.24-0.36 EOSINOPHILS ABSOLUTE COUNT (BEAKER) (test spyn=354) 0.20 K/ L 0.04-0.36 BASOPHILS ABSOLUTE COUNT (BEAKER) (test gfna=557) 0.05 K/ L 0.01-0.08 IMMATURE GRANULOCYTES-RELATIVE PERCENT (BEAKER) (test lzoo=8179) 0 % 0-1 CT, [id number] 22:21:00Reason for exam:->CONSTIPATIONx 5 daysReason for exam:->ABDOMINAL PAINx 2-3 daysWhat is the patient's sedation requirement?->No SedationFINAL REPORT CLINICAL HISTORY: Left lower quadrant pain FINDINGS: Multiple axial images of the abdomen and pelvis were performed after the uncomplicated administration of IV contrast. Oral contrast was not given. This exam was performed according to our departmental dose- optimization program, which includes automated exposure control, adjustment of the mA and/or kV according to patient size and/or use of the iterative reconstruction technique. Comparison: 04/30/2017 Lower chest: Clear lungs. No pleural effusion or pneumothorax. The cardiac size is at the upper limits of normal. There is atherosclerotic coronary artery calcification. Liver: No significant findings. Gallbladder and biliary tree: No significant findings. Spleen: Calcified granuloma Adrenal Glands: No significant findings. Kidneys and ureters: Increased density exophytic focus arising from the inferior right kidney measuring 1.4 cm. Other foci in both kidneys consistent with cysts or too small to characterize. Stomach and Duodenum: Small hiatal hernia Pancreas: No significant findings. Bowel: Left lower quadrant colostomy. A parastomal hernia containing several loops of unobstructed small bowel. There is circumferential wall thickening and adjacent inflammatory fat stranding in the segment of colon immediately proximal to the colostomy. There are several diverticula at the distal portion, however, the inflammatory changes appear more extensive. A focus of circumferential wall thickening and luminal narrowing is noted proximal to this abnormal bowel, which may be peristalsis but a focal colonic lesion is not excluded. This segment is seen on images 49 through 57 of series 1. There are several loops of unobstructed bowel in a large infraumbilical ventral hernia. The hernia neck measures 9 cm. Appendix: Nonvisualized Bladder: No significant findings. Major vascular structures: Atherosclerotic calcifications Reproductive organs: Previous hysterectomy Other: No free air, fluid or a denopathy Skeleton: No acute bony abnormality. Previous lumbosacral fusion. IMPR ESSION: Left lower quadrant colostomy. The segment of colon immediately proximal to and extending into the ostomy demonstrates subtle wall thickening and adjace nt inflammatory fat stranding. This appearance could reflect colitis. Diverticul itis is less likely as only the distal portion of the involved colon demonstrate s diverticula. An underlying colonic lesion could be present, as there is a segm ent of wall thickening and luminal narrowing proximal to this portion of the col on. Gastroenterology evaluation is recommended when clinically feasible. Promine nt infra umbilical ventral hernia containing unobstructed large and small bowel. Small hiatal hernia. 1.4 cm increased density lesion exophytic from the inferior right kidney could reflect a proteinaceous cyst but definitive characterization with nonemergent renal ultrasound is recommended. Signed: Oj Hodgson MDReport Verified Date/Time: 06/09/2018 22:21:02 Reading Location: [address] Reading Room Electronically signed by: OJ HODGSON M.D. on 2017 10:21 PM URINALYSIS W/ [id number] 19:00:00* Test Item Value Reference Range Comments COLOR (BEAKER) (test nbnd=632) Yellow CLARITY (BEAKER) (test uqvu=386) Clear SPECIFIC GRAVITY UA (BEAKER) (test qlfb=120) 1.010 1.001-1.035 PH UA (BEAKER) (test oafu=397) 6.0 5.0-8.0 PROTEIN UA (BEAKER) (test yqip=683) Negative Negative GLUCOSE UA (BEAKER) (test swpl=189) Negative Negative KETONES UA (BEAKER) (test qblh=844) Negative Negative BILIRUBIN UA (BEAKER) (test gquw=085) Negative Negative BLOOD UA (BEAKER) (test hcuc=316) Negative Negative NITRITE UA (BEAKER) (test jncw=630) Negative Negative LEUKOCYTE ESTERASE UA (BEAKER) (test yhav=297) Negative Negative UROBILINOGEN UA (BEAKER) (test lusx=094) 0.2 mg/dL 0.2-1.0 RBC UA (BEAKER) (test ggjc=400) < /HPF WBC UA (BEAKER) (test wpzd=709) 1 /HPF SQUAMOUS EPITHELIAL (BEAKER) (test rqnu=092) 2 /HPF SOURCE(BEAKER) (test lcdf=0706) BASIC METABOLIC [id number] 18:34:00* Test Item Value Reference Range Comments SODIUM (BEAKER) (test kigj=861) 140 meq/L 136-145 POTASSIUM (BEAKER) (test fuze=313) 3.8 meq/L 3.5-5.1 CHLORIDE (BEAKER) (test stbz=741) 103 meq/L 98-107 CO2 (BEAKER) (test wzzq=148) 27 meq/L 22-29 BLOOD UREA NITROGEN (BEAKER) (test fmcz=327) 17 mg/dL 7-21 CREATININE (BEAKER) (test okpz=673) 0.86 mg/dL 0.57-1.25 GLUCOSE RANDOM (BEAKER) (test bdpb=564) 142 mg/dL 70-105 CALCIUM (BEAKER) (test ulcv=939) 10.3 mg/dL 8.4-10.2 EGFR (BEAKER) (test zbzz=0618) 81 mL/min/1.73 sq m ESTIMATED GFR IS NOT ACCURATE CREATININE CLEARANCE IN PREDICTING GLOMERULAR FILTRATION RATE. ESTIMATED GFR IS NOT APPLICABLE FOR DIALYSIS PATIENTS. CBC W/PLT COUNT & AUTO [id number] 18:32:00* Test Item Value Reference Range Comments WHITE BLOOD CELL COUNT (BEAKER) (test vdjj=570) 12.6 K/ L 3.5-10.5 RED BLOOD CELL COUNT (BEAKER) (test nrvx=627) 5.10 M/ L 3.93-5.22 HEMOGLOBIN (BEAKER) (test hyjd=650) 13.0 GM/DL 11.2-15.7 HEMATOCRIT (BEAKER) (test nepu=704) 42.4 % 34.1-44.9 MEAN CORPUSCULAR VOLUME (BEAKER) (test uxfu=478) 83.1 fL 79.4-94.8 MEAN CORPUSCULAR HEMOGLOBIN (BEAKER) (test naxf=374) 25.5 pg 25.6-32.2 MEAN CORPUSCULAR HEMOGLOBIN CONC (BEAKER) (test bvht=110) 30.7 GM/DL 32.2-35.5 RED CELL DISTRIBUTION WIDTH (BEAKER) (test lesh=229) 13.2 % 11.7-14.4 PLATELET COUNT (BEAKER) (test yvzq=202) 312 K/CU MM 150-450 MEAN PLATELET VOLUME (BEAKER) (test tvhr=137) 9.3 fL 9.4-12.3 NUCLEATED RED BLOOD CELLS (BEAKER) (test xosv=815) 0 /100 WBC 0-0 NEUTROPHILS RELATIVE PERCENT (BEAKER) (test lnbs=225) 84 % LYMPHOCYTES RELATIVE PERCENT (BEAKER) (test nrkl=716) 10 % MONOCYTES RELATIVE PERCENT (BEAKER) (test hpyk=140) 5 % EOSINOPHILS RELATIVE PERCENT (BEAKER) (test nfci=593) 1 % BASOPHILS RELATIVE PERCENT (BEAKER) (test upff=908) 0 % NEUTROPHILS ABSOLUTE COUNT (BEAKER) (test jcxc=055) 10.59 K/ L 1.56-6.13 LYMPHOCYTES ABSOLUTE COUNT (BEAKER) (test fxcj=732) 1.20 K/ L 1.18-3.74 MONOCYTES ABSOLUTE COUNT (BEAKER) (test gdov=400) 0.66 K/ L 0.24-0.36 EOSINOPHILS ABSOLUTE COUNT (BEAKER) (test bbcg=451) 0.06 K/ L 0.04-0.36 BASOPHILS ABSOLUTE COUNT (BEAKER) (test rmej=078) 0.03 K/ L 0.01-0.08 IMMATURE GRANULOCYTES-RELATIVE PERCENT (BEAKER) (test pxgk=1412) 0 % 0-1 URINE [id number] 12:58:00* Test Item Value Reference Range Comments CULTURE (BEAKER) (test bawh=4322) >100,000 col/mL skin juliana URINALYSIS W/ [id number] 13:02:00* Test Item Value Reference Range Comments COLOR (BEAKER) (test sflx=519) Yellow CLARITY (BEAKER) (test hexu=066) Clear SPECIFIC GRAVITY UA (BEAKER) (test liks=072) 1.026 1.001-1.035 PH UA (BEAKER) (test yzhg=353) 5.5 5.0-8.0 PROTEIN UA (BEAKER) (test alrt=143) Negative Negative GLUCOSE UA (BEAKER) (test bgfh=750) Negative Negative KETONES UA (BEAKER) (test dwzn=135) Negative Negative BILIRUBIN UA (BEAKER) (test wltp=451) Negative Negative BLOOD UA (BEAKER) (test cxrm=621) Negative Negative NITRITE UA (BEAKER) (test rbuz=921) Negative Negative LEUKOCYTE ESTERASE UA (BEAKER) (test sgzv=717) Negative Negative UROBILINOGEN UA (BEAKER) (test skir=727) 0.2 mg/dL 0.2-1.0 RBC UA (BEAKER) (test amvv=095) 0 /HPF WBC UA (BEAKER) (test ubho=150) < /HPF SQUAMOUS EPITHELIAL (BEAKER) (test fiyi=184) 2 /HPF SOURCE(BEAKER) (test tgpg=9448) Urine, Clean Catch POCT-GLUCOSE [id number] 12:25:00* Test Item Value Reference Range Comments POC-GLUCOSE METER (BEAKER) (test jaqi=4205) 88 mg/dL 70-110 TESTED AT [address] [address] POCT-GLUCOSE [id number] 09:00:00* Test Item Value Reference Range Comments POC-GLUCOSE METER (BEAKER) (test jpmc=9679) 96 mg/dL 70-110 TESTED AT [address] [address] BASIC METABOLIC [id number] 06:26:00* Test Item Value Reference Range Comments SODIUM (BEAKER) (test alrr=241) 141 meq/L 136-145 POTASSIUM (BEAKER) (test nlog=611) 3.3 meq/L 3.5-5.1 CHLORIDE (BEAKER) (test osox=686) 107 meq/L 98-107 CO2 (BEAKER) (test wcoz=511) 24 meq/L 22-29 BLOOD UREA NITROGEN (BEAKER) (test qohl=440) 19 mg/dL 7-21 CREATININE (BEAKER) (test ugfl=715) 0.78 mg/dL 0.57-1.25 GLUCOSE RANDOM (BEAKER) (test pazl=182) 107 mg/dL 70-105 CALCIUM (BEAKER) (test cliq=365) 8.9 mg/dL 8.4-10.2 EGFR (BEAKER) (test emly=7091) 91 mL/min/1.73 sq m ESTIMATED GFR IS NOT ACCURATE CREATININE CLEARANCE IN PREDICTING GLOMERULAR FILTRATION RATE. ESTIMATED GFR IS NOT APPLICABLE FOR DIALYSIS PATIENTS. CBC W/PLT COUNT & AUTO [id number] 06:03:00* Test Item Value Reference Range Comments WHITE BLOOD CELL COUNT (BEAKER) (test ewdq=185) 11.6 K/ L 3.5-10.5 RED BLOOD CELL COUNT (BEAKER) (test fmgg=763) 4.15 M/ L 3.93-5.22 HEMOGLOBIN (BEAKER) (test lrli=909) 10.7 GM/DL 11.2-15.7 HEMATOCRIT (BEAKER) (test vmrw=417) 34.7 % 34.1-44.9 MEAN CORPUSCULAR VOLUME (BEAKER) (test asjb=095) 83.6 fL 79.4-94.8 MEAN CORPUSCULAR HEMOGLOBIN (BEAKER) (test fkef=581) 25.8 pg 25.6-32.2 MEAN CORPUSCULAR HEMOGLOBIN CONC (BEAKER) (test mglt=239) 30.8 GM/DL 32.2-35.5 RED CELL DISTRIBUTION WIDTH (BEAKER) (test ojli=535) 14.2 % 11.7-14.4 PLATELET COUNT (BEAKER) (test mjli=848) 269 K/CU MM 150-450 MEAN PLATELET VOLUME (BEAKER) (test vnbn=667) 9.7 fL 9.4-12.3 NUCLEATED RED BLOOD CELLS (BEAKER) (test lpqr=902) 0 /100 WBC 0-0 NEUTROPHILS RELATIVE PERCENT (BEAKER) (test cwqy=074) 69 % LYMPHOCYTES RELATIVE PERCENT (BEAKER) (test nzbj=440) 21 % MONOCYTES RELATIVE PERCENT (BEAKER) (test ptna=073) 8 % EOSINOPHILS RELATIVE PERCENT (BEAKER) (test zxgc=869) 1 % BASOPHILS RELATIVE PERCENT (BEAKER) (test lflk=933) 0 % NEUTROPHILS ABSOLUTE COUNT (BEAKER) (test brvq=015) 8.05 K/ L 1.56-6.13 LYMPHOCYTES ABSOLUTE COUNT (BEAKER) (test zqfn=005) 2.41 K/ L 1.18-3.74 MONOCYTES ABSOLUTE COUNT (BEAKER) (test dkuj=666) 0.94 K/ L 0.24-0.36 EOSINOPHILS ABSOLUTE COUNT (BEAKER) (test iodl=519) 0.12 K/ L 0.04-0.36 BASOPHILS ABSOLUTE COUNT (BEAKER) (test jhua=959) 0.02 K/ L 0.01-0.08 IMMATURE GRANULOCYTES-RELATIVE PERCENT (BEAKER) (test tchd=8671) 1 % 0-1 LACTIC ACID, VENOUS, WHOLE [id number] 23:17:00* Test Item Value Reference Range Comments LACTATE BLOOD VENOUS (2) (BEAKER) (test chhx=9969) 1.4 mmol/L 0.5-2.2 Specimen moderately hemolyzed Effective 01/19/2016: Units/Reference Range ChangeNew: 0.5-2.2 mmol/L Previous: 5 -20 mg/[id number] 20:38:00* Test Item Value Reference Range Comments LIPASE (BEAKER) (test dfjx=894) 12 U/L 8-78 BASIC METABOLIC [id number] 20:38:00* Test Item Value Reference Range Comments SODIUM (BEAKER) (test xfbz=011) 139 meq/L 136-145 POTASSIUM (BEAKER) (test yktw=946) 4.4 meq/L 3.5-5.1 CHLORIDE (BEAKER) (test gknn=559) 106 meq/L 98-107 CO2 (BEAKER) (test ymro=509) 19 meq/L 22-29 BLOOD UREA NITROGEN (BEAKER) (test nhqs=075) 19 mg/dL 7-21 CREATININE (BEAKER) (test noya=895) 0.80 mg/dL 0.57-1.25 GLUCOSE RANDOM (BEAKER) (test rxak=147) 147 mg/dL 70-105 CALCIUM (BEAKER) (test fflt=269) 10.1 mg/dL 8.4-10.2 EGFR (BEAKER) (test noul=2343) 88 mL/min/1.73 sq m ESTIMATED GFR IS NOT ACCURATE CREATININE CLEARANCE IN PREDICTING GLOMERULAR FILTRATION RATE. ESTIMATED GFR IS NOT APPLICABLE FOR DIALYSIS PATIENTS. HEPATIC FUNCTION [id number] 20:38:00* Test Item Value Reference Range Comments TOTAL PROTEIN (BEAKER) (test dynz=909) 7.8 gm/dL 6.0-8.3 ALBUMIN (BEAKER) (test ieqb=1732) 4.3 g/dL 3.5-5.0 BILIRUBIN TOTAL (BEAKER) (test ezna=728) 0.6 mg/dL 0.2-1.2 BILIRUBIN DIRECT (BEAKER) (test zsmr=738) 0.3 mg/dL 0.1-0.5 ALKALINE PHOSPHATASE (BEAKER) (test malh=123) 102 U/L 40-150 AST (SGOT) (BEAKER) (test kpyn=411) 14 U/L 5-34 ALT (SGPT) (BEAKER) (test vjfr=889) 10 U/L 6-55 CBC W/PLT COUNT & AUTO [id number] 20:26:00* Test Item Value Reference Range Comments WHITE BLOOD CELL COUNT (BEAKER) (test rptc=967) 16.9 K/ L 3.5-10.5 RED BLOOD CELL COUNT (BEAKER) (test olka=503) 4.83 M/ L 3.93-5.22 HEMOGLOBIN (BEAKER) (test mbky=335) 12.6 GM/DL 11.2-15.7 HEMATOCRIT (BEAKER) (test svdj=439) 41.1 % 34.1-44.9 MEAN CORPUSCULAR VOLUME (BEAKER) (test ojrn=178) 85.1 fL 79.4-94.8 MEAN CORPUSCULAR HEMOGLOBIN (BEAKER) (test tixq=740) 26.1 pg 25.6-32.2 MEAN CORPUSCULAR HEMOGLOBIN CONC (BEAKER) (test yjha=426) 30.7 GM/DL 32.2-35.5 RED CELL DISTRIBUTION WIDTH (BEAKER) (test kcyn=336) 14.3 % 11.7-14.4 PLATELET COUNT (BEAKER) (test fhpb=951) 307 K/CU MM 150-450 MEAN PLATELET VOLUME (BEAKER) (test advw=776) 8.9 fL 9.4-12.3 NUCLEATED RED BLOOD CELLS (BEAKER) (test blcx=166) 0 /100 WBC 0-0 NEUTROPHILS RELATIVE PERCENT (BEAKER) (test ejef=055) 87 % LYMPHOCYTES RELATIVE PERCENT (BEAKER) (test rnna=936) 8 % MONOCYTES RELATIVE PERCENT (BEAKER) (test cnjh=316) 5 % EOSINOPHILS RELATIVE PERCENT (BEAKER) (test weet=363) 0 % BASOPHILS RELATIVE PERCENT (BEAKER) (test atoi=393) 0 % NEUTROPHILS ABSOLUTE COUNT (BEAKER) (test ddgu=153) 14.72 K/ L 1.56-6.13 LYMPHOCYTES ABSOLUTE COUNT (BEAKER) (test ravt=994) 1.28 K/ L 1.18-3.74 MONOCYTES ABSOLUTE COUNT (BEAKER) (test qfsl=404) 0.77 K/ L 0.24-0.36 EOSINOPHILS ABSOLUTE COUNT (BEAKER) (test istw=965) 0.01 K/ L 0.04-0.36 BASOPHILS ABSOLUTE COUNT (BEAKER) (test aseq=026) 0.03 K/ L 0.01-0.08 IMMATURE GRANULOCYTES-RELATIVE PERCENT (BEAKER) (test agql=7917) 1 % 0-1
[2019-01-12] MEDS ORDERED: SODIUM CHLORIDE 0.9% 1000ML 1,000 ML IV STA (12:31)
[2019-01-12] MEDS ORDERED: ONDANSETRON HCL INJ 2MG/ML 2ML 2 MG/ML VIAL IV ONE ×2 (13:00→15:00)
[2019-01-12] MEDS ORDERED: KETOROLAC TROMETHAMINE 30 MG/ML VIAL IV STA (13:32)
[2019-01-12 13:52] LABS: BASOPHILS % 0.2 % (0.0-1.0); EOSINOPHILS # (AUTO) 0.1 (0.0-0.4); EOSINOPHILS % 0.5 % (0.0-6.0); HEMATOCRIT 38.2 % (34.2-44.1); HEMOGLOBIN 12.2 g/dL (12.0-16.0); LYMPHOCYTES # (AUTO) 1.5 (1.0-3.2); LYMPHOCYTES % 11.1 % (18.0-39.1); MEAN CORPUSCULAR HGB CONC 31.9 g/dL (31-35); MEAN CORPUSCULAR VOLUME 81.4 fL (81-99); MONOCYTES # (AUTO) 0.7 (0.2-0.8); MONOCYTES % 5.2 % (4.4-11.3); NEUTROPHILS # (AUTO) 10.8 (2.1-6.9); NEUTROPHILS % 82.5 % (38.7-80.0); PLATELET COUNT 302 x10e3/uL (140-360); RED BLOOD COUNT 4.69 x10e6/uL (3.6-5.1); RED CELL DISTRIBUTION WIDTH 13.6 % (11.7-14.4)
[2019-01-12 13:57] LABS: BILIRUBIN,URINE NEGATIVE (NEGATIVE); CLARITY,URINE HAZY (CLEAR); COLOR,URINE YELLOW (YELLOW); KETONES,URINE TRACE (NEGATIVE); LEUKOCYTE ESTERASE ,URINE NEGATIVE (NEGATIVE); NITRITE,URINE NEGATIVE (NEGATIVE); PROTEIN,URINE DIPSTICK NEGATIVE (NEGATIVE); URINE UROBILINOGEN 0.2 mg/dL (0.2 - 1)
[2019-01-12 14:09] LABS: ALANINE AMINOTRANSFERASE 13 IU/L (0-55); ALBUMIN 3.6 g/dL (3.5-5.0); ALBUMIN/GLOBULIN RATIO 0.9 (0.8-2.0); ALKALINE PHOSPHATASE 112 IU/L (40-150); ANION GAP 17.5 mmol/L (8-16); BLOOD UREA NITROGEN 14 mg/dL (7-26); BUN/CREATININE RATIO 16 (6-25); CALCIUM 9.9 mg/dL (8.4-10.2); CARBON DIOXIDE 24 mmol/L (22-29); CHLORIDE 102 mmol/L (98-107); EST GLOMERULAR FILTRATION RATE > 60 ML/MIN (60-); GLUCOSE 140 mg/dL (74-118); MAGNESIUM 1.9 MG/DL (1.3-2.1); POTASSIUM 3.5 mmol/L (3.5-5.1); SODIUM 140 mmol/L (136-145)
[2019-01-12 14:32] LABS: BACTERIA,URINE MODERATE /HPF; EPITHELIAL CELLS,URINE MODERATE /LPF; MUCUS,URINE MANY (RARE); RBC,URINE 0-5 /HPF (0-5); WBC,URINE (MAN) 0-5 /HPF (0-5)
[2019-01-12] MEDS ORDERED: PANTOPRAZOLE 40 MG 10ML VIAL IV ONE (15:00)
[2019-01-12] MEDS ORDERED: MORPHINE SULFATE INJ 4 MG/ML INJ 1ML IV ONE (15:00)
--- NOTE | 2019-01-12 15:41 | Diagnostic Imaging Report ---
EXAMINATION: CT of the abdomen and pelvis with contrast. TECHNIQUE: Spiral CT images of the abdomen and pelvis were performed from the lung bases to the lesser trochanters after the intravenous administration of 100 cc of Isovue 370 and the oral administration of water. Coronal and sagittal reformatted images were obtained. COMPARISON: None. CLINICAL HISTORY:Abdominal pain, no bowel movement for 3 days, history of diverticulitis and bowel perforation status post colostomy DISCUSSION: ABDOMEN/PELVIS: LOWER THORAX:Linear opacity in the right middle lobe, likely representing subsegmental atelectasis or scarring. No consolidation. Atherosclerotic calcification of the coronary arteries and thoracic aorta. HEPATOBILIARY: Decreased attenuation of the hepatic parenchyma compared to the spleen, consistent with steatosis. The liver is enlarged, measuring 16.5 cm in the right midclavicular line. Normal contour. Calcified granuloma in hepatic segment . No focal lesions. No intra or extrahepatic biliary ductal dilation. GALLBLADDER: No radio-opaque stones or sludge. No wall thickening. SPLEEN: No splenomegaly. Calcified granuloma PANCREAS: Marked pancreatic atrophy. No focal lesion or ductal dilation. ADRENALS: No adrenal nodules. KIDNEYS/URETERS: No hydronephrosis, stones, or solid mass lesions. 1.4 cm right superior to mid aspect and left mid to inferior aspect fluid density simple cysts. Additional subcentimeter hypodense lesions bilaterally are too small to characterize but likely represent small cysts. PELVIC ORGANS/BLADDER: Bladder is unremarkable. Uterus is absent. No adnexal masses. PERITONEUM/RETROPERITONEUM: No free air or fluid. LYMPH NODES: No intra-abdominal, retroperitoneal, pelvic or inguinal lymphadenopathy. VESSELS: The celiac trunk,superior and inferior mesenteric and bilateral renal arteries are patent The portal, superior mesenteric and splenic veins are patent. GI TRACT: No bowel dilation or evidence of obstruction. Moderate amount of retained stool. No pericolonic inflammatory changes. Colonic diverticulosis, without surrounding inflammatory changes to suggest diverticulitis. Left lower quadrant colostomy. BONES AND SOFT TISSUE: No aggressive lytic lesions. Posterior fusion hardware L4-L5. Large parastomal hernia measuring approximately 10.5 x 14.2 cm (series 2, image 65), with mesenteric fat, small and large bowel loops, which show no wall thickening or dilation. No free fluid. Neck measures approximately 4.8 cm. Anterior midline pelvic wall hernia which measures approximately 22.8 x 10.0 x 11.0 cm (series 2, image 74, coronal image 38 and sagittal image 78), containing multiple loops of small bowel as well as large bowel. No wall thickening, bowel dilation or free fluid. Fat and bowel containing umbilical hernia (series 2, image 68 and sagittal image 85). The bowel has an unremarkable appearance, without dilation, wall thickening or free fluid. IMPRESSION: 1. No bowel dilation or evidence of obstruction. Moderate amount of retained stool. 2. Colonic diverticulosis, without diverticulitis. 3. Large parastomal and anterior midline pelvic wall hernias, containing fat and bowel. No evidence of strangulation. 4. Fat and bowel containing umbilical hernia, without evidence of strangulation. 5. Hepatomegaly with diffuse steatosis. Signed by: Dr. Moris Cade M.D. on 01/12/2019 3:38 PM
[2019-01-12] MEDS ORDERED: HYDROXYCHLOROQ200 MG PO (16:25)
[2019-01-12] MEDS ORDERED: TOPIRAMATE100 MG PO (16:25)
[2019-01-12] MEDS ORDERED: CLONIDINE HCL0.1 MG PO (16:25)
[2019-01-12] MEDS ORDERED: GLIMEPIRIDE2 MG PO (16:25)
[2019-01-12] MEDS ORDERED: LOSARTAN-HCTZ1 EAC1 PO (16:25)
[2019-01-12] MEDS ORDERED: PRAVASTATIN SOD80 MG PO (16:25)
[2019-01-12] MEDS ORDERED: METHYLPREDNISOLO4 M1 PO (16:25)
[2019-01-12] MEDS ORDERED: CITRATE OF MAGNESIA 300ML BOTTLE PO ONE (16:30)
[2019-01-12] MEDS ORDERED: LACTULOSE SYRUP 20 GM/30 ML UDC PO PRN (17:00)
--- OUTSIDE RECORDS SUMMARY | 2019-01-12 17:18 | XMS REPORT | Clinical Summary ---
Author Author GORGE StartMeLost Rivers Medical CenterVindiciaNew [facility] Organization [facility] Address Unknown Phone Unavailable Care Team Providers Care Cold Roll Inspector Name Role Phone Vivi Matthew MD PCP [...] quadrant pain (Primary Dx); Colostomy complication, unspecified ([facility]); Type 2 diabetes mellitus with complication, unspecified whether fdc insulin use ([facility]); Essential hypertension; Systemic lupus erythematosus, unspecified SLE type, unspecified organ involvement status ([facility]); Recurrent ventral hernia 06/13/2018 Emergency General Internal [...] Taken Vital Sign Reading 11/12/2018 8:50 AM ASSISTANT PROFESSOR OF ANTHROPOLOGY Blood Pressure 122/56 11/12/2018 8:50 AM ASSISTANT PROFESSOR OF ANTHROPOLOGY Pulse 80 11/12/2018 8:50 AM ASSISTANT PROFESSOR OF ANTHROPOLOGY Temperature 36.5 C (97.7 F) 11/12/2018 8:50 AM ASSISTANT PROFESSOR OF ANTHROPOLOGY Respiratory Rate 18 11/12/2018 8:50 AM ASSISTANT PROFESSOR OF ANTHROPOLOGY Oxygen Saturation 94% - Inhaled Oxygen - Concentration 11/11/2018 6:12 AM ASSISTANT PROFESSOR OF ANTHROPOLOGY Weight 110.7 kg (244 lb) 11/11/2018 6:12 AM ASSISTANT PROFESSOR OF ANTHROPOLOGY Height 152.4 cm (5') 11/11/2018 6:12 AM ASSISTANT PROFESSOR OF ANTHROPOLOGY Body Mass Index 47.65 Plan of Treatment Not on file Procedures Comments Procedure Name Priority Date/Time Associated Diagnosis POCT-GLUCOSE METER Routine 11/12/2018 8:57 AM ASSISTANT PROFESSOR OF ANTHROPOLOGY POCT-GLUCOSE METER Routine 11/11/2018 9:47 PM ASSISTANT PROFESSOR OF ANTHROPOLOGY POCT-GLUCOSE METER Routine 11/11/2018 6:22 PM ASSISTANT PROFESSOR OF ANTHROPOLOGY CT ABDOMEN/PELVIS WITH IV STAT 11/11/2018 CONTRAST 9:25 AM ASSISTANT PROFESSOR OF ANTHROPOLOGY CBC W/PLT COUNT & AUTO STAT 11/11/2018 DIFFERENTIAL 7:52 AM ASSISTANT PROFESSOR OF ANTHROPOLOGY CBC W/PLT COUNT & AUTO STAT 11/11/2018 DIFFERENTIAL 7:52 AM ASSISTANT PROFESSOR OF ANTHROPOLOGY BASIC METABOLIC PANEL (7) STAT 11/11/2018 7:52 AM ASSISTANT PROFESSOR OF ANTHROPOLOGY URINALYSIS W/ MICROSCOPIC STAT 11/11/2018 7:23 AM ASSISTANT PROFESSOR OF ANTHROPOLOGY POCT-GLUCOSE METER Routine 06/15/2018 12:17 PM CDT [...] Results * POC-Glucose meter (11/12/2018 8:57 AM ASSISTANT PROFESSOR OF ANTHROPOLOGY) Only the most recent of 10 results within the time period is included. POC-Glucose Meter 134 (H)Comment: TESTED AT 70 - 110 mg/dL [facility] [address] [facility] [id number] Specimen Blood Performing Organization Address City/State/Zipcode Phone Number [place] [phone] [place] [address] [address] * CT abdomen/pelvis with IV contrast (11/11/2018 9:25 AM ASSISTANT PROFESSOR OF ANTHROPOLOGY) Only the most recent of 3 results within the time period is included. Specimen Narrative Performed At FINAL REPORT [employer] Modular DOSE REDUCTION: The examination was performed according [...] MD Report Verified Date/Time:11/11/2018 09:52:32 Reading Location: [facility] Radiology Reading Room Procedure Note Interface, External Ris In - 11/11/2018 9:54 AM ASSISTANT PROFESSOR OF ANTHROPOLOGY FINAL REPORT DOSE REDUCTION: The examination was [...] Report Verified Date/Time: 11/11/2018 09:52:32 Reading Location: [facility] Radiology Reading Room Performing Organization Address City/State/Zipcode Phone Number [facility] * CBC with platelet count + automated diff (11/11/2018 7:52 AM ASSISTANT PROFESSOR OF ANTHROPOLOGY) Only the most recent of 4 results within the time period is included. WBC 12.3 (H) 3.5 - 10.5 K/L [facility] RBC 5.19 3.93 - 5.22 M/L [facility] Hemoglobin 13.2 11.2 - 15.7 GM/DL [facility] Hematocrit 43.9 34.1 - 44.9 % [facility] MCV 84.6 79.4 - 94.8 fL [facility] MCH 25.4 (L) 25.6 - 32.2 pg [facility] MCHC 30.1 (L) 32.2 - 35.5 GM/DL [facility] RDW 13.8 11.7 - 14.4 % [facility] Platelets 262 150 - 450 K/CU MM [facility] MPV 8.9 (L) 9.4 - 12.3 fL [facility] nRBC 0 0 - 0 /100 WBC [facility] % Neutros 68 % [facility] % Lymphs 23 % [facility] % Monos 7 % [facility] % Eos 1 % [facility] % Baso 0 % [facility] # Neutros 8.32 (H) 1.56 - 6.13 K/L [facility] # Lymphs 2.77 1.18 - 3.74 K/L [facility] # Monos 0.89 (H) 0.24 - 0.36 K/L [facility] # Eos 0.16 0.04 - 0.36 K/L [facility] # Baso 0.05 0.01 - 0.08 K/L [facility] Immature 1 0 - 1 % [facility] Granulocytes-Relative [facility] Specimen Blood Performing Organization Address City/[facility]/Zipcode Phone Number [facility] [address] [place] [address] [facility] * Basic Metabolic Panel (11/11/2018 7:52 AM ASSISTANT PROFESSOR OF ANTHROPOLOGY) Only the most recent of 4 results within the time period is included. Sodium 142 136 - 145 meq/L [facility] Potassium 3.8 3.5 - 5.1 meq/L [facility] Chloride 107 98 - 107 meq/L [facility] CO2 21 (L) 22 - 29 meq/L [facility] BUN 15 7 - 21 mg/dL [facility] Creatinine 0.82 0.57 - 1.25 mg/dL [facility] Glucose 95 70 - 105 mg/dL [facility] Calcium 10.2 8.4 - 10.2 mg/dL [facility] EGFR 85Comment: ESTIMATED GFR IS mL/min/1.73 sq m [facility] NOT ACCURATE CREATININE [facility] CLEARANCE IN PREDICTING GLOMERULAR FILTRATION RATE. ESTIMATED GFR IS NOT APPLICABLE FOR DIALYSIS PATIENTS. Specimen Blood Performing Organization Address City/State/Zipcode Phone Number [facility] [address] [place] [address] [facility] * Urinalysis w/Microscopic (11/11/2018 7:23 AM ASSISTANT PROFESSOR OF ANTHROPOLOGY) Only the most recent of 2 results within the time period is included. Color, UA Yellow [facility] Clarity, UA Clear [facility] Specific [place], UA 1.011 1.001 - 1.035 [facility] pH, UA 5.5 5.0 - 8.0 [facility] Protein, UA Negative Negative [facility] Glucose, UA Negative Negative [facility] Ketones, UA Negative Negative [facility] Bilirubin, UA Negative Negative [facility] Blood, UA Negative Negative [facility] Nitrite, UA Negative Negative [facility] Leukocytes, UA Negative Negative [facility] Urobilinogen, UA 0.2 0.2 - 1.0 mg/dL [facility] RBC, UA <1 /HPF [facility] WBC, UA 1 /HPF [facility] Bacteria, UA Rare [facility] Mucus Rare [facility] Squam Epithel, UA 2 /HPF [facility] Specimen Source Urine, Clean Catch [facility] Specimen Urine Performing Organization Address City/[facility] [place] [address] [facility] * Phosphorus (06/15/2018 5:54 AM CDT) Only the most recent of 2 results within the time period is included. Phosphorus 3.2 2.3 - 4.7 mg/dL [facility] Specimen Blood Performing Organization Address City/[facility]/Zipcode Phone Number [address] [address] [facility] * Magnesium (06/15/2018 5:54 AM CDT) Only the most recent of 2 results within the time period is included. Magnesium 1.8 1.6 - 2.6 mg/dL [facility] Specimen Blood Performing Organization Address City/[facility] Cent[facility]ode Phone Number [address] [address] [facility] * Lactic acid, venous, whole blood (06/14/2018 5:20 AM CDT) Lactate, Venous 1.2Comment: Specimen slightly 0.5 - 2.2 mmol/L [facility] hemolyzed [facility] Specimen Blood Narrative Performed At Effective 01/19/2016: Units/Reference Range Change [facility] New: 0.5-2.2 mmol/LPrevious: 5-20 mg/dL [facility] Performing Organization Address City/State/[facility] Centercode Phone Number [address] [address] [facility] * POC-Lactic Acid, Venous (06/13/2018 3:28 PM CDT) POC-Lactic Acid, Venous 1.8 (H)Comment: TESTED AT 0.9 - 1.7 mmol/L [facility] [address] [place] [id number] Specimen Blood Performing Organization Address [facility] Centercoco Phone Number [address] [address] [facility] * PT/aPTT (06/13/2018 3:09 PM CDT) Protime 15.7 (H) 11.7 - 14.7 seconds [facility] INR 1.3 <=5.9 [facility] PTT 34.9 22.5 - 36.0 seconds [facility] Specimen Blood Narrative Performed At RECOMMENDED COUMADIN/WARFARIN INR THERAPY RANGES [facility] STANDARD DOSE: 2.0 - 3.0 Includes: PROPHYLAXIS for venous thrombosis, [facility] systemic embolization; TREATMENT for venous thrombosis and/or pulmonary embolus. HIGH RISK: Target INR is 2.5-3.5 for patients with mechanical heart valves. Performing Organization Address City/[facility] Centercode Phone Number [address] [address] [facility] * Lipase (06/13/2018 3:09 PM CDT) Lipase 23 8 - 78 U/L [facility] Specimen Blood Performing Organization Address City/State/Zipcode Phone Number [facility] [address] [place] [address] [facility] * Comprehensive metabolic panel (06/13/2018 3:09 PM CDT) Protein, Total 7.9Comment: Specimen slightly 6.0 - 8.3 gm/dL [facility] Albumin 4.3Comment: Specimen slightly 3.5 - 5.0 g/dL [facility] Alkaline Phosphatase 118 40 - 150 U/L [facility] Total Bilirubin 0.5Comment: Specimen slightly 0.2 - 1.2 mg/dL [facility] Sodium 138 136 - 145 meq/L [facility] Potassium 3.9Comment: Specimen slightly 3.5 - 5.1 meq/L [facility] Chloride 107 98 - 107 meq/L [facility] CO2 19 (L) 22 - 29 meq/L [facility] BUN 20 7 - 21 mg/dL [facility] Creatinine 0.93Comment: Specimen slightly 0.57 - 1.25 mg/dL [facility] Glucose 144 (H) 70 - 105 mg/dL [facility] Calcium 10.0 8.4 - 10.2 mg/dL [facility] AST 20Comment: Specimen slightly 5 - 34 U/L [facility] ALT 13Comment: Specimen slightly 6 - 55 U/L [facility] EGFR 74Comment: ESTIMATED GFR IS mL/min/1.73 sq m [facility] NOT ACCURATE CREATININE [facility] CLEARANCE IN PREDICTING GLOMERULAR FILTRATION RATE. ESTIMATED GFR IS NOT APPLICABLE FOR DIALYSIS PATIENTS. Specimen Blood Performing Organization Address City/State/Zipcode Phone Number [facility] [address] [place], [place] [phone] [facility] after 01/11/2018 Insurance Payer Benefit Subscriber ID Type Phone Address Plan / Group [facility] MEDIC[facility] ADV Advance Directives For more information, please contact: [facility] [address] [place] [address] Date Inactivated Comments Code Status [...]
[2019-01-12] MEDS ORDERED: LABETALOL HCL200 MG PO (17:22)
[2019-01-12] MEDS ORDERED: OMEPRAZOLE40 MG PO (17:22)
[2019-01-12] MEDS ORDERED: TYLENOL #4 PEG (17:22)
[2019-01-12] MEDS ORDERED: METRONIDAZOLE 500MG/NS 100ML IV SCH (18:00)
[2019-01-12] MEDS ORDERED: IOPAMIDOL 370 MG/ML 200 ML INFUS..BTL INJ ONE (18:09)
[2019-01-12] MEDS ORDERED: SODIUM CHLORIDE 0.9% 50ML 50 ML ONE (18:09)
[2019-01-12] MEDS: METRONIDAZOLE 500MG/NS 100ML 100 ML IV SCH ×2 (18:18→23:56)
[2019-01-12] MEDS: SODIUM CHLORIDE 0.9% 1000ML 1,000 ML IV SCH ×2 (18:18→19:32)
[2019-01-12 18:27] VITALS: BP 165/72
[2019-01-12] MEDS ORDERED: CEFTRIAXONE SOD 1 GM/NS 50 ML 50 ML IV SCH (18:30)
--- NOTE | 2019-01-12 18:50 | NUR ---
Regarding consulting physicians for patient- spoke to C Jo Ann TINSMITH APPRENTICE of the ED, he stated that that Dr. Mercedes is covering for Dr. Latrell Weinstein and Tim Bhatt is to be consulted for constipation.
[2019-01-12] MEDS: ONDANSETRON HCL INJ 2MG/ML 2ML 2 MG/ML VIAL IV PRN ×2 (19:32→23:57)
[2019-01-12] MEDS: MORPHINE SULFATE INJ 4 MG/ML INJ 1ML IV PRN ×2 (19:32→23:57)
[2019-01-12 20:00] VITALS: BP 165/72
[2019-01-12 21:43] VITALS: BP 121/59
[2019-01-13] VITALS (9 sets, daily range): BP systolic 121–173; BP diastolic 59–90
[2019-01-13] MEDS: METRONIDAZOLE 500MG/NS 100ML 100 ML IV SCH (05:01)
[2019-01-13 05:19] LABS: BASOPHILS % 0.3 % (0.0-1.0); EOSINOPHILS # (AUTO) 0.3 (0.0-0.4); EOSINOPHILS % 2.5 % (0.0-6.0); HEMATOCRIT 34.4 % (34.2-44.1); HEMOGLOBIN 11.1 g/dL (12.0-16.0); LYMPHOCYTES # (AUTO) 2.9 (1.0-3.2); LYMPHOCYTES % 25.1 % (18.0-39.1); MEAN CORPUSCULAR HEMOGLOBIN 26.3 pg (28-32); MEAN CORPUSCULAR HGB CONC 32.3 g/dL (31-35); MEAN CORPUSCULAR VOLUME 81.5 fL (81-99); MONOCYTES # (AUTO) 0.9 (0.2-0.8); MONOCYTES % 7.6 % (4.4-11.3); NEUTROPHILS # (AUTO) 7.3 (2.1-6.9); NEUTROPHILS % 64.1 % (38.7-80.0); PLATELET COUNT 272 x10e3/uL (140-360); RED BLOOD COUNT 4.22 x10e6/uL (3.6-5.1); RED CELL DISTRIBUTION WIDTH 13.8 % (11.7-14.4)
[2019-01-13 05:45] LABS: ALANINE AMINOTRANSFERASE 7 IU/L (0-55); ALBUMIN 3.4 g/dL (3.5-5.0); ALKALINE PHOSPHATASE 101 IU/L (40-150); ANION GAP 14.2 mmol/L (8-16); BLOOD UREA NITROGEN 12 mg/dL (7-26); BUN/CREATININE RATIO 15 (6-25); CALCIUM 9.1 mg/dL (8.4-10.2); CARBON DIOXIDE 23 mmol/L (22-29); CHLORIDE 107 mmol/L (98-107); CREATININE, SERUM 0.82 mg/dL (0.57-1.11); EST GLOMERULAR FILTRATION RATE > 60 ML/MIN (60-); GLUCOSE 102 mg/dL (74-118); POTASSIUM 3.2 mmol/L (3.5-5.1); SODIUM 141 mmol/L (136-145)
--- NOTE | 2019-01-13 07:05 | NUR ---
Walking rounds done. Patient resting in bed without complaints voiced at this time. Spouse at the bedside. POC discussed. Per patient she had small liquid BM yesterday. Call carmen within reach.
[2019-01-13] MEDS: SODIUM CHLORIDE 0.9% 1000ML 1,000 ML IV SCH (08:51)
[2019-01-13] MEDS: MORPHINE SULFATE INJ 4 MG/ML INJ 1ML IV PRN ×3 (09:14→20:39)
[2019-01-13] MEDS ORDERED: POTASSIUM CHLORIDE 20 MEQ TAB CR PO ONE (11:41)
[2019-01-13] MEDS ORDERED: TYLENOL PEG PRN (12:15)
[2019-01-13] MEDS: LACTULOSE SYRUP 20 GM/30 ML UDC PO SCH ×2 (13:30→20:38)
[2019-01-13] MEDS: CLONIDINE HCL 0.1 MG TAB PO SCH (17:29)
[2019-01-13] MEDS: LABETALOL HCL 200 MG TAB PO SCH (17:30)
--- NOTE | 2019-01-13 20:00 | NUR ---
INITIAL ASSESSMENT COMPLETE, LEFT SIDE COLOSTOMY INTACT, LIQUID STOOLS, CALL LIGHT IN REACH, AT BEDSIDE, NO DISTRESS NOTED,
[2019-01-13] MEDS: SIMVASTATIN 40 MG TAB PO SCH (20:38)
[2019-01-13] MEDS: ONDANSETRON HCL 4 MG ORAL DISINTEGRATING TAB PO PRN (20:39)
[2019-01-14] VITALS (7 sets, daily range): BP systolic 141–174; BP diastolic 65–90
[2019-01-14] MEDS: MORPHINE SULFATE INJ 4 MG/ML INJ 1ML IV PRN (00:56)
[2019-01-14] MEDS: ONDANSETRON HCL 4 MG ORAL DISINTEGRATING TAB PO PRN (00:57)
--- NOTE | 2019-01-14 01:51 | Consultation ---
DATE OF CONSULTATION: 01/13/2019 HISTORY OF PRESENT ILLNESS: This is a 63-year-old who has a history of colon perforation requiring surgery and colostomy, presented to the hospital because of significant abdominal pain and constipation for three days. She denies any nausea or vomiting along with this problem. She did apparently have a colonoscopy about two months or so ago, which shows some stool and polyps. Her workup so far revealed that the WBC was little bit high at 13.1 and dropped to 11. She had a CAT scan of abdomen and pelvis on admission, which showed no evidence of obstructions, evidence of diverticulosis without diverticulitis. There is large parastomal anterior midline pelvic wall hernia containing fat and bowel and also umbilical hernia has a fatty liver with hepatomegaly. PAST MEDICAL PROBLEMS: Family history of lupus, diabetes, hypertension, fibromyalgia, perforated diverticulitis requiring colostomy, history of obesity, status post back surgery and hysterectomy. FAMILY HISTORY: Significant for lupus. ALLERGIES: NSAIDS, MAURA INHIBITORS, PENICILLIN, CLARITHROMYCIN, OXYCODONE, AND SUMATRIPTAN. SOCIAL HISTORY: No alcohol use. Noncontributory. REVIEW OF SYSTEMS: Denies any chest pain or shortness of breath. Denies any dysphagia, or odynophagia. Denies any dysuria, hematuria, or any kind of syncopal episode. PHYSICAL EXAMINATION: GENERAL: Awake and alert, appears to be stable. VITAL SIGNS: Afebrile currently. HEAD, EYES, EARS, NOSE, AND THROAT: Normocephalic and atraumatic. Sclerae are anicteric. NECK: Supple. HEART: Regular. ABDOMEN: Soft. There is a midline scar with hernia. Colostomy is in place. There is mild diffuse tenderness. No rebound or mass. EXTREMITIES: There is no cyanosis or Clubbing. LABORATORY DATA: As of today, potassium 3.2, rest of the CMP is normal. WBC of 11.43, hemoglobin 11.1. CAT scan as mentioned before. IMPRESSION: 1. Chronic constipation. 2. Abdominal pain, probably secondary to that. 3. History of lupus. 4. History of perforated diverticulitis status post colostomy. RECOMMENDATIONS: Continue current care at this point with lactulose. We will add Amitiza twice a day. Follow clinically. MD MEDINA Brown/MODL /[id number] cc: Kika Sams MD Dr. Kike Gordon MD
--- NOTE | 2019-01-14 07:05 | NUR ---
Walking rounds done. Patient is awake and alertx3. States she feels better today and had multiple BM's last night. Patient was instructed to call for assistance as needed and verbalized understanding. Bed in lowest position, locked and call carmen within reach.
[2019-01-14] MEDS: CLONIDINE HCL 0.1 MG TAB PO SCH ×2 (08:37→17:00)
[2019-01-14] MEDS: GLIMEPIRIDE 2 MG TAB PO SCH (08:37)
[2019-01-14] MEDS: HYDROCHLOROTHIAZIDE 25 MG TAB PO SCH (08:37)
[2019-01-14] MEDS: HYDROXYCHLOROQUINE SULFATE 200 MG TAB PO SCH (08:37)
[2019-01-14] MEDS: LUBIPROSTONE 24 MCG CAP PO SCH ×2 (08:37→16:36)
[2019-01-14] MEDS: LABETALOL HCL 200 MG TAB PO SCH ×2 (08:38→17:00)
[2019-01-14] MEDS: TOPIRAMATE 100 MG TAB PO SCH (08:38)
[2019-01-14] MEDS: PANTOPRAZOLE SOD 40 MG TABEC PO SCH (08:38)
[2019-01-14] MEDS ORDERED: NON-FORMULARY MEDICATION (Losartan/Hydrochlorothiazide (Losartan-Hctz 100-25 Mg Tab) 1 TAB PO SCH (09:00)
[2019-01-14] MEDS: LACTULOSE SYRUP 20 GM/30 ML UDC PO SCH ×2 (10:15→21:00)
--- NOTE | 2019-01-14 10:57 | NUR ---
SOCIAL WORK INITIAL ASSESSMENT Unloader Operator to bedside to discuss plan of care with patient/family. CM/SW role and care transitions discussed. Anticipated discharge plan discussed along with duration of care. CM/SW discussed patients right to make decisions in care. CM/SW work hours given. Patient lives: IN HOUSE WITH FAMILY Admit/Transfer: VIA ED POA/Emergency contact: HOME [phone] CELL [phone] MARGARITA Current/Previous Home Health: NONE PCP/Follow-up Care: LADONNA JIM Current/Previous DME: [employer] Other Services: NONE Employment Status: DISABLED Areas of Concerns: NONE Referral Needs: NONE Education Needs: NONE IMM/CARDOZA given and signed (if applicable): UPON ADMISSION Goal for discharge: RETURN HOME CM/SW left business card at the bedside with contact information. Name and number was also written on the patients whiteboard. Patient verbalized understanding of discussion. CM will follow-up with ongoing discharge and transition of care needs.
[2019-01-14] MEDS: LOSARTAN POTASSIUM 100 MG TAB PO SCH (12:00)
[2019-01-14] MEDS ORDERED: SODIUM CHLORIDE 0.9% 1000ML 1,000 ML IV ONE (17:15)
[2019-01-14 18:40] LABS: MAGNESIUM 1.8 MG/DL (1.3-2.1); POTASSIUM 3.4 mmol/L (3.5-5.1)
[2019-01-14] MEDS ORDERED: POTASSIUM CHLORIDE 20 MEQ TAB CR PO NR (19:30)
[2019-01-14] MEDS: ACETAMINOPHEN/CODEINE 300MG - 30MG TAB PEG PRN (21:22)
[2019-01-14] MEDS: CODEINE SULFATE 30 MG TAB PEG PRN (21:22)
[2019-01-14] MEDS: SIMVASTATIN 40 MG TAB PO SCH (21:22)
[2019-01-15 01:05] VITALS: BP 125/59
[2019-01-15] MEDS: CODEINE SULFATE 30 MG TAB PEG PRN ×2 (05:58→11:08)
[2019-01-15] MEDS: ACETAMINOPHEN/CODEINE 300MG - 30MG TAB PEG PRN ×2 (05:58→11:05)
[2019-01-15 06:25] VITALS: BP 129/62
[2019-01-15] MEDS: GLIMEPIRIDE 2 MG TAB PO SCH (08:50)
[2019-01-15] MEDS: CLONIDINE HCL 0.1 MG TAB PO SCH (08:51)
[2019-01-15] MEDS: HYDROCHLOROTHIAZIDE 25 MG TAB PO SCH (08:51)
[2019-01-15] MEDS: HYDROXYCHLOROQUINE SULFATE 200 MG TAB PO SCH (08:51)
[2019-01-15] MEDS: LABETALOL HCL 200 MG TAB PO SCH (08:51)
[2019-01-15] MEDS: LACTULOSE SYRUP 20 GM/30 ML UDC PO SCH (08:51)
[2019-01-15] MEDS: TOPIRAMATE 100 MG TAB PO SCH (08:51)
[2019-01-15] MEDS: LUBIPROSTONE 24 MCG CAP PO SCH (08:51)
[2019-01-15] MEDS: LOSARTAN POTASSIUM 100 MG TAB PO SCH (08:51)
[2019-01-15] MEDS: PANTOPRAZOLE SOD 40 MG TABEC PO SCH (08:51)
--- NOTE | 2019-01-15 09:03 | Discharge Summary ---
PRIMARY CARE DOCTOR: Dr. Vivi Matthew. FINAL DIAGNOSIS: Severe [id number] constipation due to parastomal hernia. SECONDARY DIAGNOSES: 1. Lupus. 2. Diabetes. 3. Hypertension. CONSULTANTS: Dr. Gordon, GI. PROCEDURES/STUDIES PERFORMED: CT of the abdomen and pelvis. HISTORY: Per H and P. HOSPITAL COURSE: The patient reported that she responds to lactulose syrup very well, so therefore this was started. The patient had several good bowel movements and was deemed stable for discharge. The patient was seen and examined today. I have also updated her primary care doctor about this hospitalization. The patient will follow up with her in one week. CONDITION ON DISCHARGE: Improved. DISCHARGE MEDICATIONS: Please see medication reconciliation form. MD DANYA Garcia/KIERSTEN /[id number] cc: [facility]
[2019-01-15 09:14] VITALS: BP 167/77
[2019-01-15 11:00] VITALS: BP 167/77
[2019-01-15] MEDS ORDERED: LACTULOSE20 GM/30 M PO (11:15)
[2019-01-15 11:41] VITALS: BP 128/72
== END 2019-01-15 11:55 | disposition home or self-care (01) ==
LOC: ER 12:24 → ERHOLD 16:54 → IMCU 18:22
PROVIDERS: ADMIT Internal Medicine; ATTEND Internal Medicine
DX: K59.09 Other constipation (principal); K43.5 Parastomal hernia without obstruction or gangrene; I10 Essential (primary) hypertension; E11.9 Type 2 diabetes mellitus without complications; M32.9 Systemic lupus erythematosus, unspecified; K57.30 Diverticulosis of large intestine without perforation or abscess without bleeding; M79.7 Fibromyalgia; Z93.3 Colostomy status; E66.01 Morbid (severe) obesity due to excess calories; Z68.42 Body mass index [BMI] 45.0-49.9, adult; E87.6 Hypokalemia; Z88.5 Allergy status to narcotic agent; Z88.0 Allergy status to penicillin; Z88.8 Allergy status to other drugs, medicaments and biological substances; Z86.010 Personal history of colon polyps; K42.9 Umbilical hernia without obstruction or gangrene; K76.0 Fatty (change of) liver, not elsewhere classified; Z79.84 Long term (current) use of oral hypoglycemic drugs
CPT/HCPCS: 36415 ×4; 74177; 80053 ×2; 81001; 82948 ×2; 83735 ×2; 84132; 85025 ×2; 87086; 93005; 99284; C9113; G0378 ×4; J0696; J2270 ×3; J2405 ×2; J7030 ×3; Q0162 ×2; Q9967; S0164 ×2